=== PATIENT | female | born 1940 | race Caucasian/White ===

== ENCOUNTER 2021-11-09 11:50 | Outpatient (CLI) | payer OTHER, SELFPAY ==
--- NOTE | ~2021-11-09 | XR_ITS ---
EXAM: XR foot LT 2V DATE: 11/09/2021 12:16 HISTORY: R52 - Pain, SWELLING X 6WKS. NKI . COMPARISON: None available. FINDINGS: Decreased mineralization. No fracture or dislocation. No lytic or blastic lesion. Severe h allux valgus of the first ray, with moderate valgus at the second ray. Moderate degenerative change a t the first MTP and second MCP joints. Scattered mild degenerative change in the midfoot joints. Plan tar enthesopathy No erosion or periosteal change. Soft tissues within normal limits. IMPRESSION: Severe hallux valgus. Scattered degenerative changes, detailed above. Plantar enthesopath y. Reviewed, dictated and finalized at location K. IMPRESSION: Severe hallux valgus. Scattered degenerative changes, detailed christina pascual Plantar enthesopathy.
--- NOTE | ~2021-11-09 | US_ITS ---
US venous doppler [facility] DATE: 11/09/2021 12:40 INDICATION: Left leg pain TECHNIQUE: Real-time and color flow imaging and Doppler analysis COMPARISON: None FINDINGS: There is spontaneous and phasic flow and normal augmentation and color flow signal and norm al compression of the deep veins of the left lower extremity. IMPRESSION: No evidence of deep venous thrombosis of left leg Reviewed, dictated and finalized at Location A. Reviewed, dictated and finalized at location B.
--- NOTE | ~2021-11-09 | XR_ITS ---
EXAMINATION: XR ankle LT 2V DATE: 11/09/2021 12:16 INDICATION: 6 weeks of left foot and ankle pain and swelling TECHNIQUE: 1. Anteroposterior and lateral view of the left ankle were obtained. 2. Dorsoplantar and lateral views of the left foot were obtained. COMPARISON: None. FINDINGS: 50 degrees hallux valgus with bunion at the medial head of the first metatarsal. Alignment of the lef t foot and ankle is otherwise normal. No fracture. Polyarticular osteoarthritis, moderate severity at the second metatarsophalangeal joint and mild to moderate severity at the first metatarsophalangeal and a few tarsal metatarsal and interphalangeal joints. Small plantar calcaneal spur. No ankle joint effusion. The soft tissues are unremarkable. IMPRESSION: 1. Hallux valgus and bunion with mild hypertrophic changes at the medial head of the first metatarsal . 2. 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 Reviewed, dictated and finalized at location A. IMPRESSION: 1. Hallux valgus and bunion with mild hypertrophic changes at the medial head o f the first metatarsal. 2. 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
== END 2021-11-09 11:51 | disposition home or self-care (01) ==
PROVIDERS: PCP Emergency Medicine; Visit Provider Emergency Medicine
DX: R52 Pain, unspecified (principal); R60.9 Edema, unspecified; M20.12 Hallux valgus (acquired), left foot; M19.072 Primary osteoarthritis, left ankle and foot; M77.32 Calcaneal spur, left foot
CPT/HCPCS: 73600; 73620; 93971

== ENCOUNTER 2023-07-24 11:30 | Outpatient (CLI) | payer OTHER, SELFPAY ==
--- NOTE | ~2023-07-24 | XR_ITS ---
Clinical Indication: Cough PA and lateral views of the chest: Comparison: 09/25/2005 Findings: Stable calcified right apical granuloma. The lungs are otherwise clear, without evidence of focal consolidation or pleural effusion. Cardiomediastinal silhouette is within normal limits. Bone s and soft tissues are unremarkable. Impression: No significant abnormality seen. Reviewed, dictated and finalized at location . Impression: No significant abnormality seen.
== END 2023-07-24 11:31 | disposition home or self-care (01) ==
LOC: ANHIMG 11:35
PROVIDERS: PCP Emergency Medicine; Visit Provider Emergency Medicine
DX: R05.9 Cough, unspecified (principal); H93.8X3 Other specified disorders of ear, bilateral
CPT/HCPCS: 71046

== ENCOUNTER 2024-05-13 13:23 | Outpatient (CLI) | payer OTHER, SELFPAY | END 2024-05-13 13:24 | disposition home or self-care (01) | PROVIDERS: PCP Emergency Medicine; Visit Provider Internal Medicine Nephrology | DX: N18.32 Chronic kidney disease, stage 3b (principal); N28.1 Cyst of kidney, acquired | CPT/HCPCS: 76775 ==

== ENCOUNTER 2024-07-02 12:01 | Outpatient (CLI) | payer OTHER, SELFPAY ==
--- OUTSIDE RECORDS SUMMARY | 2024-07-02 13:48 | XMS_ITS | Clinical Summary ---
Author Organization [facility] Address [address] [place] [id number] Care Team Providers Care Sped Teacher Name Role Phone Unavailable Primary Care Provider Unavailabl e Social History Tobacco Use Types Packs/Day Years Used Date Smoking Tobacco: Never Assessed Comments Unknown Sex and Gender Information Value Date Recorded Sex Assigned at Not on file Legal Sex Female 7:55 PM CDT Gender Identity Not on file Sexual Orientation Not on file Last Filed Vital Signs Vital Sign Reading Time Taken Comments Blood Pressure 134/84 10/31/2016 9:40 AM CDT Pulse 95 10/31/2016 9:40 AM CDT Temperature - - Respiratory Rate - - Oxygen Saturation - - Inhaled Oxygen Concentration - - Weight 88.5 kg (195 lb) 10/31/2016 9:40 AM CDT Height 167.6 cm (5' 6 ) 10/31/2016 9:40 AM CDT Body Mass Index 31.47 10/31/2016 9:40 AM CDT Plan of Treatment Health Maintenance Due Date Last Done Comments DTaP, Tdap and Td Vaccines ( 1 - Tdap) 1959 Pneumococcal Vaccine: 50+ Ye ars (1 of 1 - PCV) 1989 Zoster Vaccines (1 of 2) 1989 RSV Immunization or 60+ Years (1 - 1-dose 75+ series) 2014 COVID-19 Vaccine ( - 2023-2 5 season) 2023 Meningococcal B Vaccine Aged Out No l onger eligible based on patient's age to complete this topic Meningococcal Vaccine Aged Out No liliana christopher eligible based on patient's age to complete this topic RSV Immunizations Under 20 Months Aged Out No longer eligible based on patient's age to complete this topic
== END 2024-07-02 12:02 | disposition home or self-care (01) ==
LOC: ANHLAB 12:06
PROVIDERS: PCP Emergency Medicine; Visit Provider Emergency Medicine
DX: E11.9 Type 2 diabetes mellitus without complications (principal)
CPT/HCPCS: 36415; 83036

== ENCOUNTER 2024-09-15 14:18 | Emergency (ER) | payer OTHER, SELFPAY ==
--- NOTE | ~2024-09-15 | XR_ITS ---
EXAM: XR knee LT min 4V DATE: 09/15/2024 15:49 HISTORY: left knee pain, swelling . COMPARISON: None available. FINDINGS: Osteopenia. Moderate tricompartmental joint space narrowing and osteophytosis. No fracture or dislocation. No lytic or blastic lesion. Scattered vascular calcifications. Large volume joint fl uid. Rounded peripherally calcified/ossified body projecting over the suprapatellar recess. IMPRESSION: No acute osseous finding in the left knee. Moderate tricompartmental osteoarthritis. Larg e knee joint effusion with loose body. Reviewed, dictated and finalized at location K. IMPRESSION: No acute osseous finding in the left knee. Moderate tricompartmenta l osteoarthritis. Large knee joint effusion with loose body.
--- NOTE | ~2024-09-15 | US_ITS ---
EXAMINATION: US venous doppler [facility] DATE: 09/15/2024 18:10 INDICATION: pain in leg,no injury . TECHNIQUE: Grayscale images without and with compression and Doppler images of the left lower extremi ty veins were obtained. COMPARISON: None FINDINGS: The left common femoral vein, profunda (deep) femoral vein, femoral vein, popliteal vein, peroneal v ein, posterior tibial veins, gastrocnemius vein, and greater saphenous vein are patent. Large left kn ee joint effusion. IMPRESSION: Patent left lower extremity veins. No evidence of deep venous thrombosis. Reviewed, dictated and finalized at location K.
--- OUTSIDE RECORDS SUMMARY | 2024-09-15 14:22 | XMS_ITS | Clinical Summary ---
Author Organization [facility] Address [address] [place] [id number] Care Team Providers Care Doctor'S Assistant Name Role Phone Unavailable Primary Care Provider [...] 9:40 AM CDT Height 167.6 cm (5' 6) 10/31/2016 9:40 AM CDT Body Mass Index [...]
[2024-09-15 15:00] VITALS: BP 110/61; PULSE 94; RESP 16; TEMP 36.6; O2SAT 96
--- NOTE | 2024-09-15 15:03 | ED.EXTPRO ---
HPI - Extremity Problem General Chief complaint: Extremity Problem,Nontraumatic <Kiera Merchant PA-C - Last Filed: 09/16/24 10:43> Stated complaint: left leg pain <JYOTI Thomas Last Filed: 09/16/24 10:43> Time Seen by Provider: 09/15/24 15:03 <Kiera Merchant PA-C - Last Filed: 09/16/24 10:43> Focused HPI: This is a 84 year old female that presents to the ER for left knee pain. No known injury. Started this morning. Reports associated swelling. Denies fevers, redness. GENERAL: Well-appearing, well-nourished, and in no acute distress. HEAD: Normocephalic, atraumatic. CHEST: Clear to auscultation. ?No respiratory distress. HEART: Regular rate and rhythm.? NEURO: ?Alert and oriented x3. EXTREMITY: Left knee with swelling without overlying redness. Normal DP pulse Patient screened in triage and initial orders placed.? ?Additional care and disposition to be based upon?diagnostic testing and treatment. <Kiera Merchant PA-C - Last Filed: 09/16/24 10:43> Focused HPI: This is a 84 year old female that presents to the ER for left knee pain. No known injury. Started this morning. Reports associated swelling. Denies fevers, redness. GENERAL: Well-appearing, well-nourished, and in no acute distress. HEAD: Normocephalic, atraumatic. CHEST: Clear to auscultation. ?No respiratory distress. HEART: Regular rate and rhythm.? NEURO: ?Alert and oriented x3. EXTREMITY: Left knee with swelling without overlying redness. Normal DP pulse Patient screened in triage and initial orders placed.? ?Additional care and disposition to be based upon?diagnostic testing and treatment. <JYOTI Yu Last Filed: 09/15/24 23:40> Source: patient <JYOTI Yu Last Filed: 09/15/24 23:40> Mode of arrival: ambulatory <JYOTI Yu Last Filed: 09/15/24 23:40> Limitations: no limitations <Jessy Ni PA-C - Last Filed: 09/15/24 23:40> History of Present Illness HPI Narrative: Agree with above HPI. Began this morning after waking up. Reports pain with ambulation. Uses a walker. Denies numbness. Does have history of gout, on chronic allopurinol therapy, but states this does not feel similar to previous gout episodes. <Jessy Ni PA-C - Last Filed: 09/15/24 23:40> Related Data Home medications: Home Medications ?Medication ?Instructions ?Recorded ?Confirmed ?Last Taken ?Type vit C 250 mg-vit E 90 mg-zinc 40 1 tablet PO BID 12/08/19 07/02/24 Unknown History mg-copper 1 to-bmujsc-qupqwq capsule (PreserVision AREDS-2) magnesium 250 mg tablet 250 mg PO BID 03/30/20 07/02/24 Unknown History iciwavuzgnsdjvzmudasdg-jpftbnii-dsauqgpv 1 drp EACH EYE QID 06/13/22 07/02/24 Unknown History 80 0.5 %-1 %-0.5 % eye drops (Refresh Optive Advanced) latanoprost 0.005 % eye drops 1 drp EACH EYE QPM 06/13/22 07/02/24 Unknown History lifitegrast 5 % eye drops in a 1 drp EACH EYE BID 06/13/22 07/02/24 Unknown History dropperette (Xiidra) omega 8-giz-dlm-fish oil 1,200 mg 1 cap PO DAILY 02/27/24 07/02/24 Unknown History (144 mg-216 mg) capsule (Fish Oil) <Kiera Merchant PA-C - Last Filed: 09/16/24 10:43> Allergies/Adverse reactions: Allergies Allergy/AdvReac Type Severity Reaction Status Date / Time Sulfa (Sulfonamide Allergy Unknown unknown Verified 09/15/24 15:03 Antibiotics) thiopental Allergy Unknown GI UPSET Verified 09/15/24 15:03 <Kiera Merchant PA-C - Last Filed: 09/16/24 10:43> Review of Systems Review of Systems: All systems reviewed & are unremarkable except as noted in HPI. <Jessy Ni PA-C - Last Filed: 09/15/24 23:40> All systems reviewed & are unremarkable except as noted in HPI and below <Jessy Ni PA-C - Last Filed: 09/15/24 23:40> [facility] Past Medical History Medical History: Medical History Varicose veins of both lower extremities Vitamin D deficiency Stage 3 chronic kidney disease Skin lesion of back Reactive depression Patient had no falls in past year Pain and swelling of left elbow Olecranon bursitis of left elbow Mixed stress and urge urinary incontinence Macular degeneration (senile) of retina, unspecified Idiopathic chronic gout of multiple sites without tophus Hyperglycemia Effusion, left elbow Anxiety Actinic keratoses Acute sinusitis Impacted cerumen of left ear Urge incontinence Gout Gout attack Left leg swelling Swelling Pain Hypothyroidism (acquired) HLD (hyperlipidemia) <Kiera Merchant PA-C - Last Filed: 09/16/24 10:43> Family History Family History: Family History Sibling Family history of cardiovascular disease Family history of chronic obstructive pulmonary disease Father Acute myocardial infarction, Onset Age: 62 Mother Acute myocardial infarction, Onset Age: 69 <Kiera Merchant PA-C - Last Filed: 09/16/24 10:43> Social History Social History: Social History Smoking status: Never smoker Alcohol intake: never Substance use: never Do You Feel Safe in your Home?: Yes Lack of Transportation: No Lack of Food: Never True Current Housing: I Have Housing Concerned About Future Housing: No Difficulty Paying Gas/Electric Bills: No Difficulty Paying for Meds: No Currently Unemployed: No Education: High School Diploma/GED Difficulty w/ Childcare or Family Care: No <Kiera Merchant PA-C - Last Filed: 09/16/24 10:43> Exam Narrative: GENERAL: Elderly, obese with BMI of 30.7, non-toxic, in no acute distress. HEAD: Normocephalic, atraumatic. RESPIRATORY: Airway patent, respirations nonlabored. CARDIOVASCULAR: Regular rate and rhythm. Pedal pulses are intact and easily palpable. MUSCULOSKELETAL: Moves all extremities. No gross deformities. Mild swelling throughout left anterior knee with tenderness to palpation diffusely throughout left knee joint spaces. Mild tenderness throughout left posterior calf region. No extremity swelling. Sensation intact throughout extremity. SKIN: Warm, dry, normal color. NEURO: A&O X3. Speech clear. Cranial nerves II-XII grossly intact. No ataxic movements. PSYCHIATRIC: Appropriate mood and affect. Normal interaction. <JYOTI Yu Last Filed: 09/15/24 23:40> Course Vital Signs Vital signs: Vital Signs Temperature 97.9 F 09/15/24 15:00 Pulse Rate 94 09/15/24 15:00 Respiratory Rate 16 09/15/24 15:00 Blood Pressure 110/61 09/15/24 15:00 Pulse Oximetry 96 09/15/24 15:00 Oxygen Delivery Room Air 09/15/24 15:00 Temperature 97.9 F 09/15/24 15:00 Pulse Rate 89 09/15/24 21:16 Respiratory Rate 17 09/15/24 21:16 Blood Pressure 115/69 09/15/24 21:16 Pulse Oximetry 98 09/15/24 21:16 Oxygen Delivery Room Air 09/15/24 15:00 <JYOTI Thomas Last Filed: 09/16/24 10:43> Vital Signs Temperature 97.9 F 09/15/24 15:00 Pulse Rate 94 09/15/24 15:00 Respiratory Rate 16 09/15/24 15:00 Blood Pressure 110/61 09/15/24 15:00 Pulse Oximetry 96 09/15/24 15:00 Oxygen Delivery Room Air 09/15/24 15:00 Temperature 97.9 F 09/15/24 15:00 Pulse Rate 89 09/15/24 21:16 Respiratory Rate 17 09/15/24 21:16 Blood Pressure 115/69 09/15/24 21:16 Pulse Oximetry 98 09/15/24 21:16 Oxygen Delivery Room Air 09/15/24 15:00 <JYOTI Yu Last Filed: 09/15/24 23:40> MDM - Extremity (Nontraumatic) MDM Narrative Medical decision making narrative: Patient?s injury is consistent with musculoskeletal etiology. No signs of neurologic or vascular compromise on physical examination. Compartments are soft without signs of compartment syndrome. XR of left knee without evidence of acute osseous abnormality. Does show arthritis changes with large joint effusion. Venous Doppler ultrasound was obtained of left lower extremity and negative for DVT. Discussed likelihood of knee sprain, internal derangement of knee. There is no warmth or erythema to the knee to suggest gout or other septic arthritis. She reports this does not feel similar to her previous gout episodes. She does have preserved range of motion. Patient given Holger bandage, Tylenol, tramadol in the ED. On re-evaluation, she is feeling improved. Was able to ambulate with walker. Patient is felt to be stable for discharge home and further outpatient management and treatment. Will refer to orthopedics for further evaluation. Will provide short course of tramadol for home. Given return precautions. Discharged in stable condition. <Jessy Ni PA-C - Last Filed: 09/15/24 23:40> Medical Records Attestation: I reviewed the patient's medical records. <Jessy Ni PA-C - Last Filed: 09/15/24 23:40> Imaging Data Attestation: I personally reviewed and interpreted this imaging study as follows: <JYOTI Yu Last Filed: 09/15/24 23:40> Radiologist's impression: ITS Impressions Knee X-Ray 09/15/24 15:57 IMPRESSION: No acute osseous finding in the left knee. Moderate tricompartmental osteoarthritis. Large knee joint effusion with loose body. Venous Doppler Study 09/15/24 18:18 IMPRESSION: Patent left lower extremity veins. No evidence of deep venous thrombosis. <Jessy Ni PA-C - Last Filed: 09/15/24 23:40> Critical Care Time Critical Care Time Critical Care Time: No <JYOTI Thomas Last Filed: 09/16/24 10:43> Discharge Plan Discharge Clinical Impression: Effusion of left knee joint Strain of left knee Qualifiers: Encounter type: initial encounter Qualified Code(s): S86.912A - Strain of unspecified muscle(s) and tendon(s) at lower leg level, left leg, initial encounter <JYOTI Thomas Last Filed: 09/16/24 10:43> Patient Disposition: Home <JYOTI Thomas Last Filed: 09/16/24 10:43> Condition: Stable <JYOTI Thomas Last Filed: 09/16/24 10:43> Instructions: Antibiotic Form, Knee Sprain (ED), P.R.I.C.E. Treatment (ED) <JYOTI Thomas Last Filed: 09/16/24 10:43> Additional Instructions: Keep leg elevated whenever possible. Recommend frequent icing to knee. Utilize Holger bandage for compression and support. Continue Tylenol as needed for pain. You can take 1000mg of tylenol every 6 hours. Utilize tramadol as needed for more severe pain. Follow-up with your primary care doctor and/or orthopedics for further evaluation if needed. Return to the ED for new or worsening concerns. <JYOTI Thomas Last Filed: 09/16/24 10:43> Patient Language: Turkmen <JYOTI Thomas Last Filed: 09/16/24 10:43> Prescriptions: New tramadol 50 mg tablet 50 mg PO Q6H PRN (Reason: pain) Qty: 15 0RF No Action PreserVision AREDS-2 [id number] uf-ddfg-ya-mg capsule 1 tablet PO BID Rx Instructions: administer with meals magnesium 250 mg tablet 250 mg PO BID Xiidra 5 % dropperette 1 drp EACH EYE BID Rx Instructions: administer approximately 12 hours apart latanoprost 0.005 % drops 1 drp EACH EYE QPM Refresh Optive Advanced 0.5-1-0.5 % drops 1 drp EACH EYE QID omega 2-hoe-zbp-fish oil [Fish Oil] 1,200 (144-216) mg capsule 1 cap PO DAILY oxybutynin chloride 5 mg tablet extended release 24hr See Rx Instructions .ROUTE .COMPLEX Qty: 90 2RF Dose Instruction: TAKE 1 TABLET BY MOUTH DAILY Rx Instructions: TAKE 1 TABLET BY MOUTH DAILY losartan-hydrochlorothiazide 100-25 mg tablet See Rx Instructions .ROUTE .COMPLEX Qty: 90 2RF Dose Instruction: TAKE 1 TABLET BY MOUTH EVERY DAY Rx Instructions: TAKE 1 TABLET BY MOUTH EVERY DAY fenofibrate nanocrystallized 48 mg tablet See Rx Instructions .ROUTE .COMPLEX Qty: 90 2RF Dose Instruction: TAKE 1 TABLET BY MOUTH EVERY DAY Rx Instructions: TAKE 1 TABLET BY MOUTH EVERY DAY allopurinol 100 mg tablet See Rx Instructions .ROUTE .COMPLEX Qty: 180 2RF Dose Instruction: TAKE 2 TABLETS BY MOUTH EVERY DAY Rx Instructions: TAKE 2 TABLETS BY MOUTH EVERY DAY pantoprazole 40 mg tablet,delayed release (DR/EC) See Rx Instructions .ROUTE .COMPLEX Qty: 90 2RF Dose Instruction: TAKE 1 TABLET BY MOUTH EVERY DAY Rx Instructions: TAKE 1 TABLET BY MOUTH EVERY DAY levothyroxine [Synthroid] 100 mcg tablet 100 mcg PO DAILY Qty: 90 2RF <Kiera Merchant PA-C - Last Filed: 09/16/24 10:43> Follow-up/Referrals: Brant Willis MD [Primary Care Provider] - Mohsen Chu MD [Physician] - (ORTHOPEDICS) <Kiera Merchant PA-C - Last Filed: 09/16/24 10:43> Time of Disposition: 21:08 <Kiera Merchant PA-C - Last Filed: 09/16/24 10:43> 21:08 <Jessy Ni PA-C - Last Filed: 09/15/24 23:40>
--- OUTSIDE RECORDS SUMMARY | 2024-09-15 18:12 | XMS_ITS | Clinical Summary ---
Author Organization [facility] Address [address] [place] [id number] Care Team Providers Care Application Development Specialist Name Role Phone Unavailable Primary Care Provider [...]
[2024-09-15] MEDS: traMADol HCL (*CRX) 50 MG TABLET PO (19:26)
[2024-09-15] MEDS: ACETAMINOPHEN 500 MG TABLET 1000 MG PO (19:26)
[2024-09-15 19:30] VITALS: BP 115/69; PULSE 89; RESP 17; O2SAT 98
[2024-09-15 21:16] VITALS: BP 115/69; PULSE 89; RESP 17; O2SAT 98
== END 2024-09-15 21:20 | disposition home or self-care (01) ==
PROVIDERS: Emergency Provider Physician Assistant; PCP Emergency Medicine
DX: S86.912A Strain of unspecified muscle(s) and tendon(s) at lower leg level, left leg, initial encounter (principal); M25.462 Effusion, left knee; M79.662 Pain in left lower leg; N18.30 Chronic kidney disease, stage 3 unspecified; N39.46 Mixed incontinence; E55.9 Vitamin D deficiency, unspecified; E03.9 Hypothyroidism, unspecified; E78.5 Hyperlipidemia, unspecified; H35.30 Unspecified macular degeneration; M1A.00X0 Idiopathic chronic gout, unspecified site, without tophus (tophi); Z79.899 Other long term (current) drug therapy; X58.XXXA Exposure to other specified factors, initial encounter
CPT/HCPCS: 73564; 93971; 99284; A9270

== ENCOUNTER 2024-12-26 10:58 | Emergency (ER) | payer OTHER, SELFPAY ==
[2024-12-26] VITALS (15 sets, daily range): BP systolic 101–140; BP diastolic 59–78; PULSE 88–99; RESP 16–31; TEMP 36.8; O2SAT 91–100
--- NOTE | ~2024-12-26 | CT_ITS ---
CTA CHEST CLINICAL HISTORY: cough, new dvt . COMPARISON: Chest x-ray today TECHNIQUE: Helical CTA performed from thoracic inlet to upper abdomen IV contrast information not listed in PACS Coronal, sagittal reformats. Multiplanar MIPS CT images acquired with automatic exposure control for dose reduction DLP: 538 mGy-cm FINDINGS: Pulmonary arteries: Large PE right upper lobe segments. Tiny segmental PE left upper lobe Thoracic Aorta: No dissection or aneurysm. Atherosclerotic disease. Heart/pericardium: Minimal coronary artery calcification. RV/LV ratio: Normal. Lungs/Pleura: Mild bibasilar scarring. Tiny focal pneumonitis right upper lobe. Calcified granuloma right upper lobe. Tracheobronchial tree: Patent. Nodes: No enlarged nodes. Right hilar calcification Bones: No acute bony abnormality. Soft tissues: Unremarkable. Visualized upper abdomen: Hepatomegaly. Large cyst liver segment 6. Renal cysts. IMPRESSION: 1. Positive for PE. Large thrombus right upper lobe. Tiny focus left upper lobe. 2. No CT evidence of right heart strain. Reviewed, dictated and finalized at location R. IMPRESSION: 1. Positive for PE. Large thrombus right upper lobe. Tiny focus left upper lob e. 2. No CT evidence of right heart strain.
--- NOTE | ~2024-12-26 | XR_ITS ---
Examination: XR chest 2V Clinical History: cough Comparison: 07/24/2023 Technique: PA and Lateral Findings: Cardiomediastinal silhouette normal size and configuration. Minimal bibasilar atelectasis and/or scarring persists. Right upper lobe calcified granuloma. Lungs otherwise clear. No acute bony abnormality. Osteopenia. IMPRESSION: 1. No acute cardiopulmonary findings. Reviewed, dictated and finalized at location R.
--- NOTE | ~2024-12-26 | US_ITS ---
EXAMINATION: US venous doppler LE , 12/26/2024 12:15 CDT HISTORY: edema Comparison: None Technique: Izaguirre-scale and color Doppler images were attempted of the lower saphenofemoral junction, common femoral vein,superficial femoral vein, proximal deep femoral vein, proximal deep femoral vein, popliteal vein and posterior tibial veins. Findings: Deep Venous System:There is thrombus with diminished flow in the common femoral vein extending into the peroneal and posterior tibial veins. There is thrombus noted also within the superficial greater saphenous vein. Soft tissues: Soft tissues are unremarkable. Impression: 1. Extensive DVT detailed above. Superficial thrombophlebitis. Reviewed, dictated and finalized at location P. Impression: 1. Extensive DVT detailed above. Superficial thrombophlebitis.
--- OUTSIDE RECORDS SUMMARY | 2024-12-26 12:50 | XMS_ITS | Clinical Summary ---
Author Organization [facility] Address [address] [place] [id number] Care Team Providers Care Certified Orthotist Practice Manager Name Role Phone Unavailable Primary Care Provider [...] 1 - Tdap) 1959 Pneumococcal Vaccine: 50+ Years (1 of 1 - PCV) 1989 Zoster Vaccines (1 of 2) 1989 RSV Immunization or 60+ Years (1 - 1-dose 75+ series) 2014 COVID-19 Vaccine ( - 2023-2 5 season) 2024 Influenza Adult (#1) 2024 12/27/2016, 12/22/2015 Meningococcal B Vaccine Aged Out No l onger eligible based on patient's age to complete this topic Meningococcal Vaccine Aged Out No liliana christopher eligible based on patient's age to complete this topic RSV Immunizations Under 20 Months Aged Out No longer eligible b ased on patient's age to complete this topic
[2024-12-26 13:08] LABS: Hematocrit 40.2 % (37.0-47.0); Hemoglobin 13.1 g/dL (12.0-15.0); Immature Granulocyte Percent A 0.4 % (0-0.5); Lymphocytes Absolute Auto 1.73 K/mm3 (0.9-3.2); Mean Corpuscular HGB Conc 32.6 g/dl (32-36); Mean Corpuscular Hemoglobin 30.8 pg (26-34); Mean Corpuscular Volume 94.6 fl (80-100); Nucleated Red Blood Cells Absolute Auto 0.000 K/mm3 (0.0-0.012); Nucleated Red Blood Cells Perc 0.0 % (0.0-0.2); Platelet Count Result 323 k/mm3 (150-375); Red Blood Count 4.25 M/mm3 (4.2-5.4); White Blood Count 9.6 K/mm3 (4.5-10.0)
[2024-12-26 13:22] LABS: Alanine Aminotransferase 62 U/L (6-35); Albumin Level 3.8 g/dL (3.5-5.1); Alkaline Phosphatase 74 U/L (38-126); Anion Gap 10 mmol/L (4-12); Aspartate Amino Transferase 50 U/L (14-36); Bilirubin,Total 0.8 mg/dL (0.2-1.3); Blood Urea Nitrogen 41 mg/dL (7-17); Calcium 9.4 mg/dL (8.4-10.2); Carbon Dioxide 28 mmol/L (22-30); Chloride 103 mmol/L (98-107); Estimated Glomerular Filt Rate 40; Glucose 135 mg/dL (65-110); Potassium 3.8 mmol/L (3.4-5.0); Sodium 141 mmol/L (137-145); Total Protein 7.7 g/dL (6.3-8.2)
[2024-12-26] MEDS: IPRATROPIUM 0.5 MG/ALBUTEROL SULFATE 2.5 MG (BASE) AMPUL.NEB 3 ML INHALATION (13:28)
[2024-12-26 13:37] LABS: INR 1.2; Prothrombin Time 15.3 Seconds (11.1-14.7)
[2024-12-26 13:38] LABS: Partial Thromboplastin Time 32.3 Seconds (22.3-36.8)
[2024-12-26] MEDS: HEPARIN SOD/D5W 100 UNITS/ML 25,000 UNITS/250 ML BAG 12 UNITS IV CONT (14:37)
--- NOTE | 2024-12-26 14:49 | ED.EXTPRO ---
HPI - Extremity Problem General Chief complaint: Extremity Problem,Nontraumatic Stated complaint: left leg swelling Time Seen by Provider: 12/26/24 12:05 History of Present Illness HPI Narrative: Patient is an 84-year-old female who presents ER with left leg swelling. Ongoing over last week and a half. She has had pain at the left inguinal region extending into the proximal thigh. She has also developed a mild cough over last week. No chest pain and no pain with deep breath. No hemoptysis. No productive cough. No fevers or chills or sweats. Had similar presentation in September where her leg swelled but she was negative for DVT. She is told she may have had a gout flare. She has no history of clots previously. No known trauma. No recent immobilization. Related Data Home Medications ?Medication ?Instructions ?Recorded ?Confirmed ?Last Taken ?Type vit C 250 mg-vit E 90 mg-zinc 40 1 tablet PO BID 12/08/19 12/26/24 12/25/24 History mg-copper 1 ej-fjfdth-wbmghc capsule (PreserVision AREDS-2) magnesium 250 mg tablet 250 mg PO DAILY 03/30/20 12/26/24 12/26/24 History ryfgnayvppkxepohpybwst-bmoqhezv-qvjegcjd 1 drp EACH EYE QID 06/13/22 12/26/24 12/25/24 History 80 0.5 %-1 %-0.5 % eye drops (Refresh Optive Advanced) latanoprost 0.005 % eye drops 1 drp EACH EYE QPM 06/13/22 12/26/24 12/25/24 History lifitegrast 5 % eye drops in a 1 drp EACH EYE BID 06/13/22 12/26/24 12/25/24 History dropperette (Xiidra) omega 6-uyu-gcc-fish oil 1,200 mg 1 cap PO DAILY 02/27/24 12/26/24 12/25/24 History (144 mg-216 mg) capsule (Fish Oil) Allergies Allergy/AdvReac Type Severity Reaction Status Date / Time Sulfa (Sulfonamide Allergy Unknown unknown Verified 12/26/24 12:02 Antibiotics) thiopental Allergy Unknown GI UPSET Verified 12/26/24 12:02 Review of Systems Review of Systems: All systems reviewed & are unremarkable except as noted in HPI and below Constitutional: Constitutional: Reports no additional constitutional complaints ENT: Reports system reviewed and no additional complaints, except as documented Cardiovascular: Cardiovascular: Reports no additional cardiovascular complaints Respiratory: Respiratory: Reports no additional respiratory complaints Musculoskeletal: Musculoskeletal: Reports no additional musculoskeletal complaints Integumentary/Breasts: Skin/Breast: Reports system reviewed and no additional complaints, except as docu PMFSH Past Medical History Medical History Varicose veins of both lower extremities Vitamin D deficiency Stage 3 chronic kidney disease Skin lesion of back Reactive depression Patient had no falls in past year Pain and swelling of left elbow Olecranon bursitis of left elbow Mixed stress and urge urinary incontinence Macular degeneration (senile) of retina, unspecified Idiopathic chronic gout of multiple sites without tophus Hyperglycemia Effusion, left elbow Anxiety Actinic keratoses Acute sinusitis Impacted cerumen of left ear Urge incontinence Gout Gout attack Left leg swelling Swelling Pain Hypothyroidism (acquired) HLD (hyperlipidemia) Family History Family History Sibling Family history of cardiovascular disease Family history of chronic obstructive pulmonary disease Father Acute myocardial infarction, Onset Age: 62 Mother Acute myocardial infarction, Onset Age: 69 Social History Social History Smoking status: Never smoker Alcohol intake: never Substance use: never Do You Feel Safe in your Home?: Yes Lack of Transportation: No Lack of Food: Never True Current Housing: Decline to Answer Concerned About Future Housing: Decline to Answer Difficulty Paying Gas/Electric Bills: Decline to Answer Difficulty Paying for Meds: Decline to Answer Currently Unemployed: Decline to Answer Education: Decline to Answer Difficulty w/ Childcare or Family Care: Decline to Answer Exam Narrative: GENERAL: Well-appearing, well-nourished, and in no acute distress. HEAD: Normocephalic, atraumatic. ENT: Mucous membranes moist. CHEST: Clear to auscultation. No respiratory distress. HEART: Regular rate and rhythm. Normal peripheral pulses. ABDOMEN: Soft, nontender, nondistended, normal active bowel sounds. EXTREMITIES: Normal range of motion. 4+ edema LLE. SKIN: Warm, dry, no rash. NEURO: Alert and oriented x3. PSYCH: Normal mood and affect. Course Course Emergency Course: Patient resting comfortably. Started on heparin. I discussed the case with Dr. Childress at [facility]. He is happy to consult on the patient. Dr. Lamar with the hospitalist service has accepted the patient. She is stable and wearing 2L O2. Vital Signs Vital signs: Vital Signs Temperature 98.3 F 12/26/24 12:02 Pulse Rate 91 12/26/24 12:02 Respiratory Rate 20 12/26/24 12:02 Blood Pressure 126/74 12/26/24 12:02 Pulse Oximetry 96 12/26/24 12:02 Oxygen Delivery Room Air 12/26/24 12:02 Temperature 98.2 F 12/26/24 20:07 Pulse Rate 88 12/26/24 20:07 Respiratory Rate 21 H 12/26/24 20:07 Blood Pressure 125/73 12/26/24 20:07 Pulse Oximetry 94 12/26/24 20:07 Oxygen Delivery Room Air 12/26/24 12:02 Oxygen Flow Rate 2 12/26/24 15:19 MDM - Extremity (Nontraumatic) Lab Data 12/26/24 13:02 12/26/24 13:02 Labs: Lab Results 12/26/24 Range/Units 13:02 WBC 9.6 (4.5-10.0) K/mm3 RBC 4.25 (4.2-5.4) M/mm3 Hgb 13.1 (12.0-15.0) g/dL Hct 40.2 (37.0-47.0) % MCV 94.6 (80-100) fl MCH 30.8 (26-34) pg MCHC 32.6 (32-36) g/dl RDW 13.7 (11.5-14.5) % Plt Count 323 (150-375) k/mm3 MPV 10.2 (7.4-10.4) fl Immature Gran % (Auto) 0.4 (0-0.5) % Neut % (Auto) 71.8 (45.5-73.1) % Lymph % (Auto) 18.0 L (18.3-44.2) % [place] % (Auto) 7.6 (2.6-8.5) % Eos % (Auto) 1.6 (0-4.4) % Baso % (Auto) 0.6 (0.2-1.2) % Lymph # (Auto) 1.73 (0.9-3.2) K/mm3 [place] # (Auto) 0.7 H (0.1-0.6) K/mm3 Eos # (Auto) 0.2 (0-0.3) K/mm3 Baso # (Auto) 0.1 (0.0-0.1) K/mm3 Abs Immat Gran (auto) 0.04 H (0.00-0.031) K/mm3 Absolute Neuts (auto) 6.9 H (1.3-6.7) K/mm3 Absolute Nucleated RBC 0.000 (0.0-0.012) K/mm3 Nucleated RBC % 0.0 (0.0-0.2) % PT 15.3 H (11.1-14.7) Seconds INR 1.2 APTT 32.3 (22.3-36.8) Seconds Sodium 141 (137-145) mmol/L Potassium 3.8 (3.4-5.0) mmol/L Chloride 103 (98-107) mmol/L Carbon Dioxide 28 (22-30) mmol/L Anion Gap 10 (4-12) mmol/L BUN 41 H (7-17) mg/dL Creatinine 1.26 H (0.7-1.0) mg/dL Estim Creat Clear Calc Not Reportable Estimated GFR 40 L (59 - ) Glucose 135 H (65-110) mg/dL Calcium 9.4 (8.4-10.2) mg/dL Total Bilirubin 0.8 (0.2-1.3) mg/dL AST 50 H (14-36) U/L ALT 62 H (6-35) U/L Alkaline Phosphatase 74 (38-126) U/L Troponin I < 0.012 (0.000-0.034) ng/mL NT-Pro-B Natriuret Pep 181 H (19.9-100) pg/mL Total Protein 7.7 (6.3-8.2) g/dL Albumin 3.8 (3.5-5.1) g/dL Imaging Data Radiologist's impression: ITS Impressions Chest X-Ray 12/26/24 13:54 IMPRESSION: 1. No acute cardiopulmonary findings. Venous Doppler Study 12/26/24 13:59 Impression: 1. Extensive DVT detailed above. Superficial thrombophlebitis. Chest CTA 12/26/24 14:50 IMPRESSION: 1. Positive for PE. Large thrombus right upper lobe. Tiny focus left upper lobe. 2. No CT evidence of right heart strain. Critical Care Time Critical Care Time Critical Care Time: Yes Total Critical Care Time: 35 Discharge Plan Discharge Clinical Impression: Deep vein thrombosis, lower left extremity, Pulmonary embolism Patient Disposition: Acute Care Hospital Condition: Serious Patient Language: Nicaraguan Prescriptions: No Action PreserVision AREDS-2 [id number] ey-xhgz-np-mg capsule 1 tablet PO BID Rx Instructions: administer with meals magnesium 250 mg tablet 250 mg PO DAILY Xiidra 5 % dropperette 1 drp EACH EYE BID Rx Instructions: administer approximately 12 hours apart latanoprost 0.005 % drops 1 drp EACH EYE QPM Refresh Optive Advanced 0.5-1-0.5 % drops 1 drp EACH EYE QID omega 4-drc-dut-fish oil [Fish Oil] 1,200 (144-216) mg capsule 1 cap PO DAILY fenofibrate nanocrystallized 48 mg tablet See Rx Instructions .ROUTE .COMPLEX Qty: 90 2RF Dose Instruction: TAKE 1 TABLET BY MOUTH EVERY DAY Rx Instructions: TAKE 1 TABLET BY MOUTH EVERY DAY allopurinol 100 mg tablet See Rx Instructions .ROUTE .COMPLEX Qty: 180 2RF Dose Instruction: TAKE 2 TABLETS BY MOUTH EVERY DAY Rx Instructions: TAKE 2 TABLETS BY MOUTH EVERY DAY pantoprazole 40 mg tablet,delayed release (DR/EC) See Rx Instructions .ROUTE .COMPLEX Qty: 90 2RF Dose Instruction: TAKE 1 TABLET BY MOUTH EVERY DAY Rx Instructions: TAKE 1 TABLET BY MOUTH EVERY DAY levothyroxine [Synthroid] 100 mcg tablet 100 mcg PO DAILY Qty: 90 2RF oxybutynin chloride 5 mg tablet extended release 24hr See Rx Instructions .ROUTE .COMPLEX Qty: 90 2RF Dose Instruction: TAKE 1 TABLET BY MOUTH DAILY Rx Instructions: TAKE 1 TABLET BY MOUTH DAILY losartan-hydrochlorothiazide 100-25 mg tablet See Rx Instructions .ROUTE .COMPLEX Qty: 90 2RF Dose Instruction: TAKE 1 TABLET BY MOUTH EVERY DAY Rx Instructions: TAKE 1 TABLET BY MOUTH EVERY DAY Follow-up/Referrals: Brant Willis MD [Primary Care Provider, Internal Medicine]
[2024-12-26 14:57] LABS: NT Pro B Type Natriuretic Pept 181 pg/mL (19.9-100); Troponin I < 0.012 ng/mL (0.000-0.034)
--- NOTE | 2024-12-26 15:18 | PC.NURSE ---
Gave PRN order of 5,500 heparin.
--- NOTE | 2024-12-26 15:23 | ECG_ITS ---
Test Date: 2024-12-26 15:30:55 Measurements Intervals [place] Rate: 94 P: 63 OR: 185 QRS: -45 QRSD: 95 T: 20 QT: 362 QTc: 453 Interpretive Statements SINUS RHYTHM LEFT ANTERIOR FASCICULAR BLOCK POSSIBLE ANTERIOR MYOCARDIAL INFARCTION , PROBABLY OLD BASELINE ARTIFACT- I, III, AVR, AVL, AVF ABNORMAL ECG No previous ECG available for comparison Electronically Signed On 12-26-2024 16:16:51 CDT by Jah Goff D.O.
--- NOTE | 2024-12-26 15:24 | PC.NURSE ---
Called ct, will push all images to [facility].
--- NOTE | 2024-12-26 16:57 | PC.NURSE ---
called [facility] transfer center for update. states they still waiting for Dr. Childress with vascular to call back.
--- NOTE | 2024-12-26 20:27 | PC.NURSE ---
Report to transport team
[2024-12-26 21:06] LABS: Partial Thromboplastin Time 96.5 Seconds (22.3-36.8)
--- NOTE | 2024-12-26 22:35 | PC.NURSE ---
2044 PTT result called to Karen DONATO at [facility] at 2070
== END 2024-12-26 20:48 | disposition short-term general hospital (02) ==
PROVIDERS: Emergency Provider Emergency Medicine; PCP Emergency Medicine
DX: I82.412 Acute embolism and thrombosis of left femoral vein (principal); I82.432 Acute embolism and thrombosis of left popliteal vein; I82.442 Acute embolism and thrombosis of left tibial vein; I26.99 Other pulmonary embolism without acute cor pulmonale
CPT/HCPCS: 36415; 71046; 71275; 80053; 83880; 84484; 85025; 85610; 85730; 93005; 93971; 94640; 96365; 96366; 99291; J1644; Q9967

== ENCOUNTER 2025-02-25 15:22 | Outpatient (CLI) | payer OTHER, SELFPAY ==
--- NOTE | ~2025-02-25 | XR_ITS ---
EXAMINATION: XR wrist LT 2V, 02/25/2025 15:30 [employer] HISTORY: M25.539 - Pain in unspecified wrist COMPARISON: No comparisons available. Findings: Healing fracture of the distal radius with intra-articular extension. Minimal degenerative changes with chondrocalcinosis. Soft tissue swelling noted. Impression: Healing distal radial fracture Reviewed, dictated and finalized at location P. E[employer]ING [employer]ING [employer]ICIAN Impression: Healing distal radial fracture
--- NOTE | ~2025-02-25 | XR_ITS ---
EXAMINATION: XR hand LT 2V, 02/25/2025 15:30 OFFICE SPEC HISTORY: M25.539 - Pain in unspecified wrist COMPARISON: No comparisons available. Findings: No acute fracture or malalignment. 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 Impression: No acute fracture or malalignment. Reviewed, dictated and finalized at location P. CE SPEC Impression: No acute fracture or malalignment.
--- OUTSIDE RECORDS SUMMARY | 2025-02-25 17:53 | XMS_ITS | Clinical Summary ---
Author Organization [facility] Address [address] [place] [id number] Care Team Providers Care Address Change Clerk Name Role Phone Unavailable Primary Care Provider [...] - 1-dose 75+ series) 2014 COVID-19 Vaccine (2024-2 6 season) 2024 Influenza Adult (#1) 2024 12/27/2016, 12/22/2015 Hepatitis A Vaccines Aged Out No long er eligible based on patient's age to complete this topic Meningococcal B Vaccine Aged Out No l onger eligible based on patient's age to complete this topic Meningococcal Vaccine Aged Out No liliana christopher eligible based on patient's age to complete this topic RSV Immunizations Under 20 Months Aged Out No longer eligible b ased on patient's age to complete this topic
--- OUTSIDE RECORDS SUMMARY | 2025-02-25 17:53 | XMS_ITS | Clinical Summary ---
Author Organization [facility] Address [address] [place] [address] Care Team Providers Care Citizenship Instructor Name Role Phone Brant Willis MD Primary Care Provide r Allergies Active Allergy Reactions Criticality Noted Date Comments Sulfa (Sulfonamide Antibiotics) Unknown 12/10 UNCODED Thiopental Stomach upset Low 12/26/2024 UNCODED Medications allopurinoL (ZYLOPRIM) 100 mg tablet 1 tablet (100 mg total) by other route daily 07/16/19 25 Active fenofibrate nanocrystallized (TRICOR) 48 mg tablet Take 1 tablet (48 mg total) by mouth daily 06/13/19 25 Active levothyroxine (SYNTHROID) 100 mcg tablet Take 1 tablet (100 mcg total) by mouth jacquard loom heddles tier before breakfast 08/13/19 25 Active oxyBUTYnin XL (DITROPAN-XL) 5 mg 24 hr tablet Take 1 tablet (5 mg total) by mouth daily 10/11/[address] (PROTONIX) 40 mg EC tablet Take 1 tablet (40 mg total) by mouth daily 08/02/19 25 Active latanoprost (XALATAN) 0.005 % ophthalmic solution Administer 1 drop into both eyes nightly 06/14/19 23 Active apixaban (ELIQUIS) 5 mg tabletIndications:de ep venous thrombosis Take 2 tablets (10 mg total) by mouth 2 (two) times a day for 6 days, THEN 1 tablet (5 mg total) 2 (two) times a day. Disregard previous prescription. 72 tablet 1 12/31/19 25 Active losartan-hydrochloro thiazide (HYZAAR) 100-25 mg per tablet Take 1 tablet by mouth daily Active magnesium gluconate (MAGONATE) 500 mg (27 mg elemental) tabletIndications:hy pomagnesemia Active omega-3 fatty acids-fish oil 300-1,000 mg capsule Take 2,400 mg by mouth daily Active vit A/vit C/vit E/zinc/copper (PRESERVISION AREDS ORAL) Take by mouth Active traMADoL (ULTRAM) 50 mg tablet Take 1 tablet (50 mg total) by mouth every 6 (six) hours as needed for pain Active nystatin cream APPLY TOPICALLY 3 TIMES A DAY 01/07/20 Active Active Problems Problem Noted Date Diagnosed Date Thrombosis 12/26/2024 Acute deep vein thrombosis ( DVT) of femoral vein of left lower extremity 12/26/2024 Assessment & Plan (01/15/2025 2:05 PM UTILITY SALES AND SERVICE MANAGER): Status post mechanical thrombectomy of left external iliac vein and left common femoral femoral and popliteal veins 12/28/2024. She continues on Eliquis continues to have edema to the left lower extremity and has not been wearing compression. She was re-educated and strongly encouraged consistent use of compression to the left lower extremity to help manage edema and associated symptoms. Otherwise should remain on Eliquis for at least 6 months and follow-up with Heme-Onc for further evaluation of her unprovoked DVT. Bilateral pulmonary embolism 12/26/2024 Assessment & Plan (01/15/2025 2:06 PM UTILITY SALES AND SERVICE MANAGER): Remains on Eliquis. No chest pain or shortness of breath currently. Continue Eliquis for at least 6 months. Encounters Date Type Department Care Team Description 01/15/2025 10:30 AM UTILITY SALES AND SERVICE MANAGER Office Visit [facility] [address] [phone] Sujey Copeland, [place] Acute deep vein thrombosis (DVT) of femoral vein of left lower extremity (HCC) (Primary Dx); Bilateral pulmonary embolism (HCC) 01/12/2025 3:55 PM UTILITY SALES AND SERVICE MANAGER - 01/12/2025 5:31 PM UTILITY SALES AND SERVICE MANAGER Emergency [facility] [address] [place] [address] Rash (Primary Dx) Discharge Disposition: Discharge to home or self care 12/28/2024 10:05 AM CDT - 12/28/2024 11:45 AM CDT Surgery [facility] Cardiac Leg Man [address] [place] [id number] Jackson Childress MD EXTREMITY VENOGRAPHY, UNILATERAL S&I [id number] [[id number] (CPT )] 12/26/2024 9:33 PM CDT - 12/30/2024 2:10 PM CDT Hospital Encounter [address] [address] Ashu Lamar MD [place], MD Stan Brand Pathanjali, MD Acute deep vein thrombosis (DVT) of femoral vein of left lower extremity (HCC) (Primary Dx); Bilateral pulmonary embolism (HCC); Thrombosis Discharge Disposition: Discharge to home or self care 12/26/2024 2:15 PM CDT - 12/26/2024 11:59 PM CDT Hospital Encounter [facility] [employer] [address] [place] [address] Discharge Disposition: Discharge to home or self care 12/26/2024 1:40 PM CDT - 12/26/2024 11:59 PM CDT Hospital Encounter [facility] [employer] [address] [place] [address] Discharge Disposition: Discharge to home or self care 12/26/2024 12:55 PM CDT - 12/26/2024 11:59 PM CDT Hospital Encounter [facility] [employer] [facility] [place] [address] Discharge Disposition: Discharge to home or self care from Last 3 Months Immunizations Immunization Administration Dates Next Due Influenza, Unspecified 11/10/2024 Surgical History Surgery Date Site/Laterality Comments CARDIAC CATHETERIZATION 12/28/2024 Left Procedure: EXTREMITY VENOGRAPHY, UNILATERAL S&I [id number]; Surgeon: Jackson Childress MD; Location: [facility]; Service: Vascular; Laterality: Left; Medical devices from this surgery are in the Medical Devices section. CARDIAC CATHETERIZATION 12/28/2024 N/A Procedure: THROMBECTOMY, MECHANICAL, PRIMARY VENOUS, INITIAL VESSEL; Surgeon: Jackson Childress MD; Location: [facility]; Service: Vascular; Laterality: N/A; Medical devices from this surgery are in the Medical Devices section. Social History Tobacco Use Types Packs/Day Years Used Date Smoking Tobacco: Never Passive Smoke Exposure: Never Smokeless Tobacco: Never Tobacco Cessation:Counseling Given: Not Answered Social Connection and Isolation Panel Answer Date Recorded In a typical week, how many times do you talk on the phone with family, friends, or neighbors? More than three times a week 12/29/2024 How often do you get togethe r with friends or relatives? More than three times a week 12/29/2024 How often do you attend chur ch or pentecostalism services? 1 to 4 times per year 12/29/2024 Do you belong to any clubs o r organizations such as mu-ism groups, unions, fraternal or athletic groups, or school groups? No 12/29/2024 How often do you attend meet ings of the clubs or organizations you belong to? Never 12/29/2024 Are you , , di vorced, , never , or living with a partner? Patient unable to answer 12/29/2024 Overall Financial Resource Strain (CARDIA) Answe r Date Recorded How hard is it for you to pa y for the very basics like food, housing, medical care, and heating? Not very hard 12/29/2024 Hunger Vital Sign Answer Date Recorded Within the past 12 months, y ou worried that your food would run out before you got the money to buy more. Never true 12/30/19 Within the past 12 months, t he food you bought just didn't last and you didn't have money to get more. Never true 12/29/2024 PRAPARE - Transportation Answer Date Re corded In the past 12 months, has l ack of transportation kept you from medical appointments or from getting medications? No 12/11 In the past 12 months, has l ack of transportation kept you from meetings, work, or from getting things needed for daily living? No 12/29/2024 Housing Stability Vital Sign Answer Cheikh e Recorded Unable to Pay for Housing in the Last Year No 12/29/2024 In the past 12 months, how m any times have you moved where you were living? 0 12/29/2024 At any time in the [facility], were you homeless or living in a long-term (including now)? No 12/29/2024 [facility] Utilities Answer Date Recorded In the past 12 months has th [place], gas, oil, or water [employer] threatened to shut off services in your home? No 12/29/2024 Personal Safety Answer Date Recorded Have you ever been in or are you currently in a harmful physical or emotional relationship or is someone making you feel afraid or unsafe? Denies 01/12/2025 Comments Unknown Sex and Gender Information Value Date Recorded Sex Assigned at Not on file Legal Sex Female 8:05 PM UTILITY SALES AND SERVICE MANAGER Gender Identity Not on file Sexual Orientation Not on file Last Filed Vital Signs Vital Sign Reading Time Taken Comments Blood Pressure 154/90 01/12/2025 4:02 PM UTILITY SALES AND SERVICE MANAGER Pulse 79 01/12/2025 4:02 PM UTILITY SALES AND SERVICE MANAGER Temperature 36.4 C (97.5 F) 01/12/2025 4:02 PM UTILITY SALES AND SERVICE MANAGER Respiratory Rate 18 01/12/2025 4:02 PM UTILITY SALES AND SERVICE MANAGER Oxygen Saturation 98% 01/12/2025 4:02 PM UTILITY SALES AND SERVICE MANAGER Inhaled Oxygen Concentration - - Weight 87.5 kg (193 lb) 01/15/2025 10:19 AM UTILITY SALES AND SERVICE MANAGER Height 165.1 cm (5' 5) 01/15/2025 10:19 AM UTILITY SALES AND SERVICE MANAGER Body Mass Index 32.12 01/15/2025 10:19 AM UTILITY SALES AND SERVICE MANAGER Plan of Treatment Health Maintenance Due Date Last Done Comments Depression Screening 1940 Osteoporosis Screening-Bone Density Scan 1940 DTaP/Tdap/Td Vaccine (1 - Tdap) 1950 Hepatitis B Screening 1957 Pneumococcal vaccine 65+ (1 of 1 - PCV) 1989 Well Visit 65+ 01/20/2004 Covid-19 Vaccine (2 - 2024-2 6 season) 2024 05/14/2020 Fall Risk Assessment 12/30/2025 12/30/2024 Zoster Vaccine Completed 03/01/2020, 12/31/2019 Influenza Vaccine Completed 11/20/2024, , 12/07/2023, Additional history exists Medical Devices Implanted Type Area Tobacco Sweeper Device Identifier Shelf Expiration Date Model / Serial / Lot [employer] System Closure Repair Femoral Artery Suture Mediated Perclose Prostyle 16184-72 - [id number] Implanted:Qty: 1 on 12/28/2024 by Jackson Childress MD at [facility] [employer] 10/09/2026 [id number] / [id number] [employer] System Closure Repair Femoral Artery Suture Mediated Perclose Prostyle 15063-54 - [id number] Implanted:Qty: 1 on 12/28/2024 by Jackson Childress MD at [facility] [employer] 10/09/2026 10408-41 / / [id number] Procedures Procedure Name Priority Date/Time Associated Diagnosis Comments EGFR STAT 01/12/2025 4:26 PM UTILITY SALES AND SERVICE MANAGER DIFFERENTIAL AUTO STAT 01/12/2025 4:2 6 PM UTILITY SALES AND SERVICE MANAGER SEPSIS LACTATE WITH REFLEX STAT 01/12/2025 4:26 PM UTILITY SALES AND SERVICE MANAGER ERYTHROCYTE SEDIMENTATION RATE STAT 01/12/2025 4:26 PM UTILITY SALES AND SERVICE MANAGER CRP (ACUTE PHASE) STAT 01/12/2025 4:2 6 PM UTILITY SALES AND SERVICE MANAGER COMPREHENSIVE METABOLIC PANEL STAT 01/12/2025 4:26 PM UTILITY SALES AND SERVICE MANAGER CBC WITH AUTO DIFFERENTIAL STAT 01/12/2025 4:26 PM UTILITY SALES AND SERVICE MANAGER EGFR Routine 12/30/2024 2:48 AM CDT DIFFERENTIAL AUTO Routine 12/30/2024 2:4 8 AM CDT COMPREHENSIVE METABOLIC PANEL Routine 12/30/2024 2:48 AM CDT CBC WITH AUTO DIFFERENTIAL Routine 12/30/2024 2:48 AM CDT LIPID PANEL Routine 12/30/2024 2:48 AM CDT EGFR Routine 12/29/2024 2:22 AM CDT DIFFERENTIAL AUTO Routine 12/29/2024 2:2 2 AM CDT HEPARIN ANTI FACTOR XA ACTIVITY Routine 12/29/2024 2:22 AM CDT COMPREHENSIVE METABOLIC PANEL Routine 12/29/2024 2:22 AM CDT CBC WITH AUTO DIFFERENTIAL Routine 12/29/2024 2:22 AM CDT LIPID PANEL Routine 12/29/2024 2:22 AM CDT HEMOGLOBIN AND HEMATOCRIT Timed 12/28/2024 9:23 PM CDT HEPARIN ANTI FACTOR XA ACTIVITY Timed 12/28/2024 7:43 PM CDT ECG 12-LEAD Routine 12/28/2024 6:30 PM CDT HEMOGLOBIN AND HEMATOCRIT STAT 12/28/2024 3:52 PM CDT THROMBECTOMY, MECHANICAL, PRIMARY VENOUS, INITIAL VESSEL Routine 12/28/2024 11:20 AM CDT Acute deep vein thrombosis (DVT) of femoral vein of left lower extremity (HCC) VENO EXTREM UNILAT S&I Routine 11:20 AM CDT Acute deep vein thrombosis (DVT) of femoral vein of left lower extremity (HCC) URIC ACID Routine 12/28/2024 3:21 AM CDT EGFR Routine 12/28/2024 3:21 AM CDT DIFFERENTIAL AUTO Routine 12/28/2024 3:2 1 AM CDT HEPARIN ANTI FACTOR XA ACTIVITY Routine 12/28/2024 3:21 AM CDT COMPREHENSIVE METABOLIC PANEL Routine 12/28/2024 3:21 AM CDT CBC WITH AUTO DIFFERENTIAL Routine 12/28/2024 3:21 AM CDT LIPID PANEL Routine 12/28/2024 3:21 AM CDT HEPARIN ANTI FACTOR XA ACTIVITY Timed 12/27/2024 6:45 PM CDT HEPARIN ANTI FACTOR XA ACTIVITY Timed 12/27/2024 12:35 PM CDT TRANSTHORACIC ECHO (TTE) COMPLETE W DOPPLER/CF W CONTRAST W BUBBLE Routine 12/27/2024 12:11 PM CDT EGFR Routine 12/27/2024 5:47 AM CDT T4, FREE Routine 12/27/2024 5:47 AM CDT DIFFERENTIAL AUTO Routine 12/27/2024 5:4 7 AM CDT HEPARIN ANTI FACTOR XA ACTIVITY Timed 12/27/2024 5:47 AM CDT HEMOGLOBIN A1C Routine 12/27/2024 5:47 AM CDT LIPID PANEL Routine 12/27/2024 5:47 AM CDT THYROID FUNCTION CASCADE Routine 12/27/2024 5:47 AM CDT PHOSPHORUS Routine 12/27/2024 5:47 AM CDT MAGNESIUM Routine 12/27/2024 5:47 AM CDT COMPREHENSIVE METABOLIC PANEL Routine 12/27/2024 5:47 AM CDT CBC WITH AUTO DIFFERENTIAL Routine 12/27/2024 5:47 AM CDT PROTIME-INR STAT 12/26/2024 11:41 PM CDT EGFR Routine 12/26/2024 11:41 PM CDT DIFFERENTIAL AUTO Routine 12/26/2024 11: 41 PM CDT COMPREHENSIVE METABOLIC PANEL Routine 12/26/2024 11:41 PM CDT CBC WITH AUTO DIFFERENTIAL Routine 12/26/2024 11:41 PM CDT HEPARIN ANTI FACTOR XA ACTIVITY STAT 12/26/2024 11:[address] BODY OUTSIDE REFERENCE Routine 12/26/2024 2:15 PM CDT XR TRANSFER OF OUTSIDE FILMS Routine 12/26/2024 1:40 PM CDT US TRANSFER OF OUTSIDE FILMS Routine 12/26/2024 12:55 PM CDT from Last 3 Months Results * Sepsis Lactate w/ Reflex (01/12/2025 4:26 PM UTILITY SALES AND SERVICE MANAGER) Sepsis Lactate 1.3 0.7 - 2.0 mmol/L Blood 01/12/2025 4:26 PM UTILITY SALES AND SERVICE MANAGER 01/12/2025 4:31 PM UTILITY SALES AND SERVICE MANAGER us Kiera ALMANZAR LAB BLOOD ORDERABLES Final R esult [facility] [address] [facility] Department [place] [address] * (ABNORMAL) eGFR (01/12/2025 4:26 PM UTILITY SALES AND SERVICE MANAGER) eGFR 53(L) >=60 mL/min/1. 73 m2 Comment: Interpretive Data Reference Interval Normal >/= 90 mL/min/1.73m2 Mildly decreased* 60 - 89 mL/min/1.73m2 Mildly to moderately decreased 45 - 59 mL/min/1.73m2 Moderately to severely decreased 30 - 44 mL/min/1.73m2 Severely decreased 15 - 29 mL/min/1.73m2 Kidney Failure < 15 mL/min/1.73m2 *Relative to young adult level Estimated glomerular filtration rate is determined by the 2020 CKD-EPI equation recommended by the National Kidney Foundation (A Unifying Approach to GFR Estimation: Recommendations of the NKF-ASK Task Force on Reassessing the Inclusion of Race in Diagnosing Kidney Disease, JASN 2020). The CKD-EPI equation should not be used for patients with unstable renal function and has not been validated in children and those over 70. Current interpretive data was last reviewed 2021. Blood 01/12/2025 4:26 PM UTILITY SALES AND SERVICE MANAGER 01/12/2025 4:31 PM UTILITY SALES AND SERVICE MANAGER us Kiera ALMANZAR LAB BLOOD ORDERABLES Final R esult [facility] [address] [facility] [place] [address] * Differential, auto (01/12/2025 4:26 PM UTILITY SALES AND SERVICE MANAGER) Pathologist [facility] Neutrophil abs 3.43 1.50 - 6.50 K/cumm Imm gran abs 0.02 0.00 - 0.10 K/cumm [facility] Lymphocyte abs 1.97 0.80 - 3.30 K/cumm [facility] Monocyte abs 0.49 0.20 - 0.80 K/cumm [facility] Eosinophil abs 0.09 0.00 - 0.50 K/cumm [facility] Basophil abs 0.03 0.00 - 0.10 K/cumm [facility] Neutrophil pct 56.9 % [facility] Comment: Interpretive Data Percent cell count reference ranges are not reported, since discordance with absolute values may lead to misinterpretation of CBC data. Current Interpretive Data was last revised on 2017. Imm gran pct 0.3 % [facility] Comment: Interpretive Data Percent cell count reference ranges are not reported, since discordance with absolute values may lead to misinterpretation of CBC data. Current Interpretive Data was last revised on 2017. Lymphocyte pct 32.7 % [facility] Comment: Interpretive Data Percent cell count reference ranges are not reported, since discordance with absolute values may lead to misinterpretation of CBC data. Current Interpretive Data was last revised on 2017. Monocyte pct 8.1 % [facility] Comment: Interpretive Data Percent cell count reference ranges are not reported, since discordance with absolute values may lead to misinterpretation of CBC data. Current Interpretive Data was last revised on 2017. Eosinophil pct 1.5 % [facility] Comment: Interpretive Data Percent cell count reference ranges are not reported, since discordance with absolute values may lead to misinterpretation of CBC data. Current Interpretive Data was last revised on 2017. Basophil pct 0.5 % [facility] Comment: Interpretive Data Percent cell count reference ranges are not reported, since discordance with absolute values may lead to misinterpretation of CBC data. Current Interpretive Data was last revised on 2017. Blood 01/12/2025 4:26 PM UTILITY SALES AND SERVICE MANAGER 01/12/2025 4:31 PM UTILITY SALES AND SERVICE MANAGER us Kiera ALMANZAR LAB BLOOD ORDERABLES Final R esult [place] [id number] [facility] [place] [address] * (ABNORMAL) CBC with auto differential (01/12/2025 4:26 PM UTILITY SALES AND SERVICE MANAGER) WBC 6.03 3.80 - 9.90 K/cumm Hgb 11.5(L) 11.9 - 15.5 g/dL [facility] Hct 36.1 35.6 - 45.5 % [facility] Plt 267 150 - 400 K/cumm [facility] MPV 10.0 9.1 - 12.3 fL [facility] RBC 3.73(L) 3.90 - 5.20 M/cumm [facility] MCV 96.8(H) 81.3 - 96.4 fL [facility] MCH 30.8 27.1 - 33.3 pg [facility] MCHC 31.9(L) 32.3 - 35.7 g/dL [facility] RDW CV 14.3 11.1 - 14.9 % [facility] RDW SD 50.4(H) 35.7 - 48.1 fL [facility] NRBC abs 0.00 0.00 - 0.01 K/cumm [facility] Blood 01/12/2025 4:26 PM UTILITY SALES AND SERVICE MANAGER 01/12/2025 4:31 PM UTILITY SALES AND SERVICE MANAGER Kiera ALMANZAR LAB BLOOD ORDERABLES Final R esult Performing Organization Address [facility] Co de Phone Number [id number] [place] [address] * Erythrocyte sedimentation rate (01/12/2025 4:26 PM UTILITY SALES AND SERVICE MANAGER) [facility] Erythrocyte sedimentation rate 25 1 - 30 mm/hr Blood 01/12/2025 4:26 PM UTILITY SALES AND SERVICE MANAGER 01/12/2025 4:31 PM UTILITY SALES AND SERVICE MANAGER Kiera ALMANZAR LAB BLOOD ORDERABLES Final R esult Performing Organization Address [facility] de Phone Number [address] [place] [address] * CRP (acute phase) (01/12/2025 4:26 PM UTILITY SALES AND SERVICE MANAGER) [facility] CRP 3.8 <=10.0 mg/L Blood 01/12/2025 4:26 PM UTILITY SALES AND SERVICE MANAGER 01/12/2025 4:31 PM UTILITY SALES AND SERVICE MANAGER Kiera ALMANZAR LAB BLOOD ORDERABLES Final R esult Performing Organization Address [facility] Co de Phone Number [address] [place] [address] * Comprehensive metabolic panel (01/12/2025 4:26 PM UTILITY SALES AND SERVICE MANAGER) Pathologist [facility] Sodium 140 135 - 145 mmol/L Potassium, pl 3.7 3.3 - 4.9 mmol/L [facility] Chloride 106 97 - 110 mmol/L [facility] CO2 24 22 - 32 mmol/L [facility] Anion gap 10 2 - 15 mmol/L [facility] BUN 16 6 - 25 mg/dL [facility] Creatinine 1.04 0.60 - 1.10 mg/dL [facility] Glucose 99 70 - 199 mg/dL [facility] Comment: Interpretive Data Fasting glucose >/= 126 mg/dl is diagnostic for diabetes. Fasting is defined as no caloric intake for at least 8 hours. Fasting glucose between 100 mg/dl to 125 mg/dl is diagnostic of prediabetes. In a patient with classic symptoms of hyperglycemia or hyperglycemic crisis, a random glucose >/= 200 mg/dl is diagnostic for diabetes. In the absence of unequivocal hyperglycemia, results should be confirmed by repeat testing. The classification and Diagnosis of Diabetes Diabetes Care 202; 46: S19-S40. Current interpretive data was last revised 2022. Calcium 9.5 8.5 - 10.3 mg/dL [facility] Bilirubin, total 0.5 0.1 - 1.2 mg/dL [facility] Protein, pl 7.1 6.5 - 8.5 g/dL [facility] Albumin 3.7 3.5 - 5.0 g/dL [facility] Alk phos 59 40 - 130 Units/L [facility] ALT 10 7 - 45 Units/L [facility] AST 21 10 - 45 Units/L [facility] Blood 01/12/2025 4:26 PM UTILITY SALES AND SERVICE MANAGER 01/12/2025 4:31 PM UTILITY SALES AND SERVICE MANAGER Kiera ALMANZAR LAB BLOOD ORDERABLES Final R esult [facility] [address] [facility] Department [place] [address] * (ABNORMAL) eGFR (12/30/2024 2:48 AM CDT) eGFR 44(L) >=60 mL/min/1. 73 m2 Comment: Interpretive Data Reference Interval Normal >/= 90 mL/min/1.73m2 Mildly decreased* 60 - 89 mL/min/1.73m2 Mildly to moderately decreased 45 - 59 mL/min/1.73m2 Moderately to severely decreased 30 - 44 mL/min/1.73m2 Severely decreased 15 - 29 mL/min/1.73m2 Kidney Failure < 15 mL/min/1.73m2 *Relative to young adult level Estimated glomerular filtration rate is determined by the 2020 CKD-EPI equation recommended by the National Kidney Foundation (A Unifying Approach to GFR Estimation: Recommendations of the NKF-ASK Task Force on Reassessing the Inclusion of Race in Diagnosing Kidney Disease, JASN 202). The CKD-EPI equation should not be used for patients with unstable renal function and has not been validated in children and those over 70. Current interpretive data was last reviewed 2021. Blood 12/30/2024 2:48 AM CDT 12/30/2024 3:28 AM CDT us Billy Pierce MD LAB BLOOD ORDERABLES Fin al Result [facility] [address] [facility] [place] [address] * Differential, auto (12/30/2024 2:48 AM CDT) Neutrophil abs 4.00 1.50 - 6.50 K/cumm Imm gran abs 0.02 0.00 - 0.10 K/cumm [facility] Lymphocyte abs 1.75 0.80 - 3.30 K/cumm [facility] Monocyte abs 0.55 0.20 - 0.80 K/cumm [facility] Eosinophil abs 0.31 0.00 - 0.50 K/cumm [facility] Basophil abs 0.05 0.00 - 0.10 K/cumm [facility] Neutrophil pct 60.0 % [facility] Comment: Interpretive Data Percent cell count reference ranges are not reported, since discordance with absolute values may lead to misinterpretation of CBC data. Current Interpretive Data was last revised on 2017. Imm gran pct 0.3 % [facility] Comment: Interpretive Data Percent cell count reference ranges are not reported, since discordance with absolute values may lead to misinterpretation of CBC data. Current Interpretive Data was last revised on 2017. Lymphocyte pct 26.2 % [facility] Comment: Interpretive Data Percent cell count reference ranges are not reported, since discordance with absolute values may lead to misinterpretation of CBC data. Current Interpretive Data was last revised on 2017. Monocyte pct 8.2 % [facility] Comment: Interpretive Data Percent cell count reference ranges are not reported, since discordance with absolute values may lead to misinterpretation of CBC data. Current Interpretive Data was last revised on 2017. Eosinophil pct 4.6 % [facility] Comment: Interpretive Data Percent cell count reference ranges are not reported, since discordance with absolute values may lead to misinterpretation of CBC data. Current Interpretive Data was last revised on 2017. Basophil pct 0.7 % [facility] Comment: Interpretive Data Percent cell count reference ranges are not reported, since discordance with absolute values may lead to misinterpretation of CBC data. Current Interpretive Data was last revised on 2017. Blood 12/30/2024 2:48 AM CDT 12/30/2024 3:28 AM CDT us Billy Pierce MD LAB BLOOD ORDERABLES Fin al Result [facility] [address] [facility] [place] [address] * (ABNORMAL) CBC with auto differential (12/30/2024 2:48 AM CDT) WBC 6.68 3.80 - 9.90 K/cumm Hgb 10.0(L) 11.9 - 15.5 g/dL [facility] Hct 31.0(L) 35.6 - 45.5 % [facility] Plt 343 150 - 400 K/cumm [facility] MPV 10.5 9.1 - 12.3 fL [facility] RBC 3.20(L) 3.90 - 5.20 M/cumm [facility] MCV 96.9(H) 81.3 - 96.4 fL [facility] MCH 31.3 27.1 - 33.3 pg [facility] MCHC 32.3 32.3 - 35.7 g/dL [facility] RDW CV 13.5 11.1 - 14.9 % [facility] RDW SD 48.4(H) 35.7 - 48.1 fL [facility] NRBC abs 0.00 0.00 - 0.01 K/cumm [facility] Blood 12/30/2024 2:48 AM CDT 12/30/2024 3:28 AM CDT us Billy Pierce MD LAB BLOOD ORDERABLES Fin al Result [facility] [address] [facility] [place] [address] * (ABNORMAL) Lipid panel (12/30/2024 2:48 AM CDT) Cholesterol 114 30 - 199 mg/dL Comment: Interpretive Data Ages < or = 19 years Acceptable: <170 mg/dL Borderline high: 170-199 mg/dL High: >or= 200 mg/dL Ages > or = 20 years Desirable: <200 mg/dL Borderline high: 200-239 mg/dL High: >or= 240 mg/dL Literature References: 1. Expert Panel on Integrated Guidelines for Cardiovascular Health and Risk Reduction in Children and Adolescents. Pediatrics 2011;128:S213 2. NCEP Expert Panel. Circulation 2004;110:227 Current Interpretive Data was last revised on 2017. Triglycerides 124 <=149 mg/dL [facility] Comment: Interpretive Data Ages < or = 9 years Acceptable: <75 mg/dL Borderline high: 75-99 mg/dL High: >or= 100 mg/dL Ages 10 to 20 years Acceptable: <90 mg/dL Borderline high: 90-129 mg/dL High: >or= 130 mg/dL Ages > or = 20 years Desirable: <150 mg/dL Borderline high: 150-199 mg/dL High: 200-499 mg/dL Very high: >or= 499 mg/dL Literature References: 1. Expert Panel on Integrated Guidelines for Cardiovascular Health and Risk Reduction in Children and Adolescents. Pediatrics 2011;128:S213 2. NCEP Expert Panel. Circulation 2004;110:227 Current Interpretive Data was last revised on 2017. HDL 24(L) >=40 mg/dL [facility] Comment: Interpretive Data Ages < or = 19 years Acceptable: >45 mg/dL Borderline low: 40-45 mg/dL Low: <40 mg/dL Ages > or = 20 years Desirable: >or= 60 mg/dL Low: <40 mg/dL Literature References: 1. Expert Panel on Integrated Guidelines for Cardiovascular Health and Risk Reduction in Children and Adolescents. Pediatrics 2011;128:S213 2. NCEP Expert Panel. Circulation 2004;110:227 Current Interpretive Data was last revised on 2017. LDL, calculated 67 <=129 mg/dL [facility] Comment: Interpretive Data Ages < or = 19 years Acceptable: <110 mg/dL Borderline high: 110-129 mg/dL High: >or= 130 mg/dL Ages > or = 20 years Optimal: <100 mg/dL Near optimal: 100-129 mg/dL Borderline high: 130-159 mg/dL High: >160 mg/dL Calculated using the Roger LDL-C estimating equation. This equation was implemented on 2023. Prior to this date LDL-C was estimated using the Friedewald equation. Literature References: 1. Expert Panel on Integrated Guidelines for Cardiovascular Health and Risk Reduction in Children and Adolescents. Pediatrics 2011;128:S213 2. NCEP Expert Panel. Circulation 2004;110:227 3. Roger Friedman et al. MIGUEL Cardiol. 2020 July 10;5(5):540-548. doi: 10.1001/[email or web address] Current Interpretive Data was last revised on 2023. Non-HDL Cholesterol 90 mg/dL [facility] Comment: Interpretive Data Ages < or = 19 years Acceptable: <120 mg/dL Borderline high: 120-144 mg/dL High: >145 mg/dL Ages > or = 20 years When triglycerides are >200 mg/dL, Non-HDL cholesterol is a secondary target of therapy with treatment goals that are 30 mg/dL greater than the LDL cholesterol target. Literature References: 1. Expert Panel on Integrated Guidelines for Cardiovascular Health and Risk Reduction in Children and Adolescents. Pediatrics 2011;128:S213 2. NCEP Expert Panel. Circulation 2004;110:227 Current Interpretive Data was last revised on 2017. Chol/HDL ratio 5 [facility] Blood 12/30/2024 2:48 AM CDT 12/30/2024 3:28 AM CDT us Jackson Childress MD LAB BLOOD ORDERABLES Final Result [facility] [address] [facility] [place] [address] * (ABNORMAL) Comprehensive metabolic panel (12/30/2024 2:48 AM CDT) Sodium 141 135 - 145 mmol/L Potassium, pl 3.9 3.3 - 4.9 mmol/L [facility] Chloride 105 97 - 110 mmol/L [facility] CO2 25 22 - 32 mmol/L [facility] Anion gap 11 2 - 15 mmol/L [facility] BUN 25 6 - 25 mg/dL [facility] Creatinine 1.20(H) 0.60 - 1.10 mg/dL [facility] Glucose 113 70 - 199 mg/dL [facility] Comment: Interpretive Data Fasting glucose >/= 126 mg/dl is diagnostic for diabetes. Fasting is defined as no caloric intake for at least 8 hours. Fasting glucose between 100 mg/dl to 125 mg/dl is diagnostic of prediabetes. In a patient with classic symptoms of hyperglycemia or hyperglycemic crisis, a random glucose >/= 200 mg/dl is diagnostic for diabetes. In the absence of unequivocal hyperglycemia, results should be confirmed by repeat testing. The classification and Diagnosis of Diabetes Diabetes Care 2021; 46: S19-S40. Current interpretive data was last revised 2022. Calcium 9.3 8.5 - 10.3 mg/dL [facility] Bilirubin, total 0.4 0.1 - 1.2 mg/dL [facility] Protein, pl 6.1(L) 6.5 - 8.5 g/dL [facility] Albumin 3.0(L) 3.5 - 5.0 g/dL [facility] Alk phos 53 40 - 130 Units/L [facility] ALT 29 7 - 45 Units/L [facility] AST 24 10 - 45 Units/L [facility] Blood 12/30/2024 2:48 AM CDT 12/30/2024 3:28 AM CDT us Billy Pierce MD LAB BLOOD ORDERABLES Fin al Result [facility] [address] [facility] [place] [address] * (ABNORMAL) eGFR (12/29/2024 2:22 AM CDT) Pathologist [facility] eGFR 39(L) >=60 mL/min/1. 73 m2 Comment: Interpretive Data Reference Interval Normal >/= 90 mL/min/1.73m2 Mildly decreased* 60 - 89 mL/min/1.73m2 Mildly to moderately decreased 45 - 59 mL/min/1.73m2 Moderately to severely decreased 30 - 44 mL/min/1.73m2 Severely decreased 15 - 29 mL/min/1.73m2 Kidney Failure < 15 mL/min/1.73m2 *Relative to young adult level Estimated glomerular filtration rate is determined by the 2020 CKD-EPI equation recommended by the National Kidney Foundation (A Unifying Approach to GFR Estimation: Recommendations of the NKF-ASK Task Force on Reassessing the Inclusion of Race in Diagnosing Kidney Disease, JASN 2020). The CKD-EPI equation should not be used for patients with unstable renal function and has not been validated in children and those over 70. Current interpretive data was last reviewed 2021. Blood 12/29/2024 2:22 AM CDT 12/29/2024 2:30 AM CDT Billy Pierce MD LAB BLOOD ORDERABLES [facility] al Result [place] [id number] [facility] [place] [address] * Differential, auto (12/29/2024 2:22 AM CDT) Pathologist [facility] Neutrophil abs 4.53 1.50 - 6.50 K/cumm Imm gran abs 0.02 0.00 - 0.10 K/cumm [facility] Lymphocyte abs 1.92 0.80 - 3.30 K/cumm [facility] Monocyte abs 0.64 0.20 - 0.80 K/cumm [facility] Eosinophil abs 0.24 0.00 - 0.50 K/cumm [facility] Basophil abs 0.06 0.00 - 0.10 K/cumm [facility] Neutrophil pct 61.2 % [facility] Comment: Interpretive Data Percent cell count reference ranges are not reported, since discordance with absolute values may lead to misinterpretation of CBC data. Current Interpretive Data was last revised on 2017. Imm gran pct 0.3 % [facility] Comment: Interpretive Data Percent cell count reference ranges are not reported, since discordance with absolute values may lead to misinterpretation of CBC data. Current Interpretive Data was last revised on 2017. Lymphocyte pct 25.9 % [facility] Comment: Interpretive Data Percent cell count reference ranges are not reported, since discordance with absolute values may lead to misinterpretation of CBC data. Current Interpretive Data was last revised on 2017. Monocyte pct 8.6 % [facility] Comment: Interpretive Data Percent cell count reference ranges are not reported, since discordance with absolute values may lead to misinterpretation of CBC data. Current Interpretive Data was last revised on 2017. Eosinophil pct 3.2 % [facility] Comment: Interpretive Data Percent cell count reference ranges are not reported, since discordance with absolute values may lead to misinterpretation of CBC data. Current Interpretive Data was last revised on 2017. Basophil pct 0.8 % [facility] Comment: Interpretive Data Percent cell count reference ranges are not reported, since discordance with absolute values may lead to misinterpretation of CBC data. Current Interpretive Data was last revised on 2017. Blood 12/29/2024 2:22 AM CDT 12/29/2024 2:30 AM CDT Billy Pierce MD LAB BLOOD ORDERABLES Fin al Result [facility] [address] [facility] Department [place] [address] * Heparin anti factor Xa activity (12/29/2024 2:22 AM CDT) [facility] Anti Factor Xa 0.37 IUnits/mL Comment: Interpretive Data Enoxaparin therapeutic range (peak): VTE treatment, Q12hr dosin.60-1.00 IUnits/mL VTE treatment, Q24hr dosin.00-2.00 IUnits/mL Q24hr dosing for renal impairment (CrCl <30 mL/min): 0.60-1.00 IUnits/mL VTE prevention: 0.10-0.40 IUnits/mL - Anti-Xa therapeutic ranges apply to blood samples drawn 4 hours after last dose (peak). - Unfractionated heparin (UFH) therapeutic range: 0.30-0.70 IUnits/mL - Direct factor Xa inhibitors (rivaroxaban, apixaban): Results must be interpreted qualitatively. No activity detected suggests little anticoagulant activity. - In severe antithrombin deficiency, anti-Xa measurement may be inaccurate. - Interpretive guidelines developed in adult populations. Interpretive guidelines for pediatric patients have not been rigorously defined. - Current interpretive data was last revised on 2018. Blood 12/29/2024 2:22 AM CDT 12/29/2024 2:30 AM CDT Billy Pierce MD LAB BLOOD ORDERABLES Fin al Result [place] [id number] [facility] Department [place] [address] * (ABNORMAL) CBC with auto differential (12/29/2024 2:22 AM CDT) WBC 7.41 3.80 - 9.90 K/cumm Hgb 9.9(L) 11.9 - 15.5 g/dL [facility] Hct 30.9(L) 35.6 - 45.5 % [facility] Plt 310 150 - 400 K/cumm [facility] MPV 10.4 9.1 - 12.3 fL [facility] RBC 3.21(L) 3.90 - 5.20 M/cumm [facility] MCV 96.3 81.3 - 96.4 fL [facility] MCH 30.8 27.1 - 33.3 pg [facility] MCHC 32.0(L) 32.3 - 35.7 g/dL [facility] RDW CV 13.6 11.1 - 14.9 % [facility] RDW SD 48.6(H) 35.7 - 48.1 fL [facility] NRBC abs 0.00 0.00 - 0.01 K/cumm [facility] Blood 12/29/2024 2:22 AM CDT 12/29/2024 2:30 AM CDT us Billy Pierce MD LAB BLOOD ORDERABLES Fin al Result [facility] [address] [facility] Department [place] [address] * (ABNORMAL) Lipid panel (12/29/2024 2:22 AM CDT) Cholesterol 101 30 - 199 mg/dL Comment: Interpretive Data Ages < or = 19 years Acceptable: <170 mg/dL Borderline high: 170-199 mg/dL High: >or= 200 mg/dL Ages > or = 20 years Desirable: <200 mg/dL Borderline high: 200-239 mg/dL High: >or= 240 mg/dL Literature References: 1. Expert Panel on Integrated Guidelines for Cardiovascular Health and Risk Reduction in Children and Adolescents. Pediatrics 2011;128:S213 2. NCEP Expert Panel. Circulation 2004;110:227 Current Interpretive Data was last revised on 2017. Triglycerides 112 <=149 mg/dL [facility] Comment: Interpretive Data Ages < or = 9 years Acceptable: <75 mg/dL Borderline high: 75-99 mg/dL High: >or= 100 mg/dL Ages 10 to 20 years Acceptable: <90 mg/dL Borderline high: 90-129 mg/dL High: >or= 130 mg/dL Ages > or = 20 years Desirable: <150 mg/dL Borderline high: 150-199 mg/dL High: 200-499 mg/dL Very high: >or= 499 mg/dL Literature References: 1. Expert Panel on Integrated Guidelines for Cardiovascular Health and Risk Reduction in Children and Adolescents. Pediatrics 2011;128:S213 2. NCEP Expert Panel. Circulation 2004;110:227 Current Interpretive Data was last revised on 2017. HDL 22(L) >=40 mg/dL [facility] Comment: Interpretive Data Ages < or = 19 years Acceptable: >45 mg/dL Borderline low: 40-45 mg/dL Low: <40 mg/dL Ages > or = 20 years Desirable: >or= 60 mg/dL Low: <40 mg/dL Literature References: 1. Expert Panel on Integrated Guidelines for Cardiovascular Health and Risk Reduction in Children and Adolescents. Pediatrics 2011;128:S213 2. NCEP Expert Panel. Circulation 2004;110:227 Current Interpretive Data was last revised on 2017. LDL, calculated 58 <=129 mg/dL [facility] Comment: Interpretive Data Ages < or = 19 years Acceptable: <110 mg/dL Borderline high: 110-129 mg/dL High: >or= 130 mg/dL Ages > or = 20 years Optimal: <100 mg/dL Near optimal: 100-129 mg/dL Borderline high: 130-159 mg/dL High: >160 mg/dL Calculated using the Roger LDL-C estimating equation. This equation was implemented on 2023. Prior to this date LDL-C was estimated using the Friedewald equation. Literature References: 1. Expert Panel on Integrated Guidelines for Cardiovascular Health and Risk Reduction in Children and Adolescents. Pediatrics 2011;128:S213 2. NCEP Expert Panel. Circulation 2004;110:227 3. Roger Friedman et al. MIGUEL Cardiol. 2020 July 10;5(5):540-548. doi: 10.1001/[email or web address].2020.0013 Current Interpretive Data was last revised on 2023. Non-HDL Cholesterol 79 mg/dL [facility] Comment: Interpretive Data Ages < or = 19 years Acceptable: <120 mg/dL Borderline high: 120-144 mg/dL High: >145 mg/dL Ages > or = 20 years When triglycerides are >200 mg/dL, Non-HDL cholesterol is a secondary target of therapy with treatment goals that are 30 mg/dL greater than the LDL cholesterol target. Literature References: 1. Expert Panel on Integrated Guidelines for Cardiovascular Health and Risk Reduction in Children and Adolescents. Pediatrics 2011;128:S213 2. NCEP Expert Panel. Circulation 2004;110:227 Current Interpretive Data was last revised on 2017. Chol/HDL ratio 5 [facility] Blood 12/29/2024 2:22 AM CDT 12/29/2024 2:30 AM CDT us Jackson Childress MD LAB BLOOD ORDERABLES Final Result Performing Organization Address [facility] [place]/ZIP Co de Phone Number [facility] [address] [facility] [place] [address] * (ABNORMAL) Comprehensive metabolic panel (12/29/2024 2:22 AM CDT) Sodium 140 135 - 145 mmol/L Potassium, pl 3.9 3.3 - 4.9 mmol/L [facility] Chloride 107 97 - 110 mmol/L [facility] CO2 26 22 - 32 mmol/L [facility] Anion gap 7 2 - 15 mmol/L [facility] BUN 37(H) 6 - 25 mg/dL [facility] Creatinine 1.34(H) 0.60 - 1.10 mg/dL [facility] Glucose 128 70 - 199 mg/dL [facility] Comment: Interpretive Data Fasting glucose >/= 126 mg/dl is diagnostic for diabetes. Fasting is defined as no caloric intake for at least 8 hours. Fasting glucose between 100 mg/dl to 125 mg/dl is diagnostic of prediabetes. In a patient with classic symptoms of hyperglycemia or hyperglycemic crisis, a random glucose >/= 200 mg/dl is diagnostic for diabetes. In the absence of unequivocal hyperglycemia, results should be confirmed by repeat testing. The classification and Diagnosis of Diabetes Diabetes Care 2021; 46: S19-S40. Current interpretive data was last revised 2022. Calcium 8.7 8.5 - 10.3 mg/dL [facility] Bilirubin, total 0.3 0.1 - 1.2 mg/dL [facility] Protein, pl 5.7(L) 6.5 - 8.5 g/dL [facility] Albumin 2.9(L) 3.5 - 5.0 g/dL [facility] Alk phos 59 40 - 130 Units/L [facility] ALT 34 7 - 45 Units/L [facility] AST 32 10 - 45 Units/L [facility] Blood 12/29/2024 2:22 AM CDT 12/29/2024 2:30 AM CDT Billy Pierce MD LAB BLOOD ORDERABLES Fin al Result Performing Organization Address City/[facility]/ZIP Co de Phone Number [address] [place] [address] * (ABNORMAL) Hemoglobin and hematocrit (12/28/2024 9:23 PM CDT) [facility] Hgb 9.7(L) 11.9 - 15.5 g/dL Hct 30.5(L) 35.6 - 45.5 % [facility] Blood 12/28/2024 9:23 PM CDT 12/28/2024 9:27 PM CDT Billy Pierce MD LAB BLOOD ORDERABLES Fin al Result Performing Organization Address [facility] Co de Phone Number [address] [address] * Heparin anti factor Xa activity (12/28/2024 7:43 PM CDT) [facility] Anti Factor Xa 0.36 IUnits/mL Comment: Interpretive Data Enoxaparin therapeutic range (peak): VTE treatment, Q12hr dosin.60-1.00 IUnits/mL VTE treatment, Q24hr dosin.00-2.00 IUnits/mL Q24hr dosing for renal impairment (CrCl <30 mL/min): 0.60-1.00 IUnits/mL VTE prevention: 0.10-0.40 IUnits/mL - Anti-Xa therapeutic ranges apply to blood samples drawn 4 hours after last dose (peak). - Unfractionated heparin (UFH) therapeutic range: 0.30-0.70 IUnits/mL - Direct factor Xa inhibitors (rivaroxaban, apixaban): Results must be interpreted qualitatively. No activity detected suggests little anticoagulant activity. - In severe antithrombin deficiency, anti-Xa measurement may be inaccurate. - Interpretive guidelines developed in adult populations. Interpretive guidelines for pediatric patients have not been rigorously defined. - Current interpretive data was last revised on 2018. Blood 12/28/2024 7:43 PM CDT 12/28/2024 8:02 PM CDT Billy Pierce MD LAB BLOOD ORDERABLES Fin al Result Performing Organization Address City/[facility]/ZIP Co de Phone Number [facility] [address] [place] [address] * ECG 12 lead (12/28/2024 6:30 PM CDT) Pathologist [facility] Ventricular Rate EKG/Min 72 BPM [facility] Atrial Rate 72 BPM [facility] ME-Interval (MSEC) 168 ms [facility] QRS-Interval (MSEC) 90 ms [facility] QT-Interval (MSEC) 388 ms [facility] QTc 424 ms [facility] P Hallam 30 degrees [facility] R Hallam -39 degrees [facility] T Hallam 35 degrees [facility] Diagnosis Normal sinus rhythm Left axis deviation Abnormal ECG No previous ECGs available Confirmed by HOMERO RAMIREZ M.D. ([id number]) on 12/29/2024 8:01:33 AM [facility] 12/28/2024 6:30 PM CDT 12/29/2024 8:01 AM CDT Billy Pierce MD ECG ORDERABLES Final Re sult Performing Organization Address [facility] de Phone Number [facility] * (ABNORMAL) Hemoglobin and hematocrit (12/28/2024 3:52 PM CDT) Pathologist [facility] Hgb 10.2(L) 11.9 - 15.5 g/dL Hct 31.9(L) 35.6 - 45.5 % [facility] Blood 12/28/2024 3:52 PM CDT 12/28/2024 4:07 PM CDT Billy Pierce MD LAB BLOOD ORDERABLES Fin al Result Performing Organization Address [facility] Co de Phone Number [address] [place] [address] * VENO EXTREM UNILAT S&I, THROMBECTOMY, MECHANICAL, PRIMARY VENOUS, INITIAL VESSEL (12/28/2024 11:20 AM CDT) Anatomical Region Laterality Modality X-Ray Angiograph y Narrative 12/28/2024 11:21 AM CDT Please see OpNote for result. us Jackson Childress MD CV CARDIAC CATH PROCEDURES Final Result * (ABNORMAL) eGFR (12/28/2024 3:21 AM CDT) eGFR 35(L) >=60 mL/min/1. 73 m2 Comment: Interpretive Data Reference Interval Normal >/= 90 mL/min/1.73m2 Mildly decreased* 60 - 89 mL/min/1.73m2 Mildly to moderately decreased 45 - 59 mL/min/1.73m2 Moderately to severely decreased 30 - 44 mL/min/1.73m2 Severely decreased 15 - 29 mL/min/1.73m2 Kidney Failure < 15 mL/min/1.73m2 *Relative to young adult level Estimated glomerular filtration rate is determined by the 2020 CKD-EPI equation recommended by the National Kidney Foundation (A Unifying Approach to GFR Estimation: Recommendations of the NKF-ASK Task Force on Reassessing the Inclusion of Race in Diagnosing Kidney Disease, JASN 2020). The CKD-EPI equation should not be used for patients with unstable renal function and has not been validated in children and those over 70. Current interpretive data was last reviewed 2021. Blood 12/28/2024 3:21 AM CDT 12/28/2024 3:49 AM CDT us Billy Pierce MD LAB BLOOD ORDERABLES Fin al Result [facility] [address] [facility] [place] [address] * Differential, auto (12/28/2024 3:21 AM CDT) Neutrophil abs 4.84 1.50 - 6.50 K/cumm Imm gran abs 0.03 0.00 - 0.10 K/cumm [facility] Lymphocyte abs 1.85 0.80 - 3.30 K/cumm [facility] Monocyte abs 0.74 0.20 - 0.80 K/cumm [facility] Eosinophil abs 0.23 0.00 - 0.50 K/cumm [facility] Basophil abs 0.04 0.00 - 0.10 K/cumm [facility] Neutrophil pct 62.6 % [facility] Comment: Interpretive Data Percent cell count reference ranges are not reported, since discordance with absolute values may lead to misinterpretation of CBC data. Current Interpretive Data was last revised on 2017. Imm gran pct 0.4 % [facility] Comment: Interpretive Data Percent cell count reference ranges are not reported, since discordance with absolute values may lead to misinterpretation of CBC data. Current Interpretive Data was last revised on 2017. Lymphocyte pct 23.9 % [facility] Comment: Interpretive Data Percent cell count reference ranges are not reported, since discordance with absolute values may lead to misinterpretation of CBC data. Current Interpretive Data was last revised on 2017. Monocyte pct 9.6 % [facility] Comment: Interpretive Data Percent cell count reference ranges are not reported, since discordance with absolute values may lead to misinterpretation of CBC data. Current Interpretive Data was last revised on 2017. Eosinophil pct 3.0 % [facility] Comment: Interpretive Data Percent cell count reference ranges are not reported, since discordance with absolute values may lead to misinterpretation of CBC data. Current Interpretive Data was last revised on 2017. Basophil pct 0.5 % [facility] Comment: Interpretive Data Percent cell count reference ranges are not reported, since discordance with absolute values may lead to misinterpretation of CBC data. Current Interpretive Data was last revised on 2017. Blood 12/28/2024 3:21 AM CDT 12/28/2024 3:49 AM CDT Billy Pierce MD LAB BLOOD ORDERABLES Fin al Result [facility] [address] [facility] [place] [address] * Heparin anti factor Xa activity (12/28/2024 3:21 AM CDT) [facility] Anti Factor Xa 0.37 IUnits/mL Comment: Interpretive Data Enoxaparin therapeutic range (peak): VTE treatment, Q12hr dosin.60-1.00 IUnits/mL VTE treatment, Q24hr dosin.00-2.00 IUnits/mL Q24hr dosing for renal impairment (CrCl <30 mL/min): 0.60-1.00 IUnits/mL VTE prevention: 0.10-0.40 IUnits/mL - Anti-Xa therapeutic ranges apply to blood samples drawn 4 hours after last dose (peak). - Unfractionated heparin (UFH) therapeutic range: 0.30-0.70 IUnits/mL - Direct factor Xa inhibitors (rivaroxaban, apixaban): Results must be interpreted qualitatively. No activity detected suggests little anticoagulant activity. - In severe antithrombin deficiency, anti-Xa measurement may be inaccurate. - Interpretive guidelines developed in adult populations. Interpretive guidelines for pediatric patients have not been rigorously defined. - Current interpretive data was last revised on 2018. Blood 12/28/2024 3:21 AM CDT 12/28/2024 3:49 AM CDT Billy Pierce MD LAB BLOOD ORDERABLES Fin al Result [place] [id number] [facility] [place] [address] * (ABNORMAL) CBC with auto differential (12/28/2024 3:21 AM CDT) [facility] WBC 7.73 3.80 - 9.90 K/cumm Hgb 11.3(L) 11.9 - 15.5 g/dL [facility] Hct 34.6(L) 35.6 - 45.5 % [facility] Plt 317 150 - 400 K/cumm [facility] MPV 10.7 9.1 - 12.3 fL [facility] RBC 3.61(L) 3.90 - 5.20 M/cumm [facility] MCV 95.8 81.3 - 96.4 fL [facility] MCH 31.3 27.1 - 33.3 pg [facility] MCHC 32.7 32.3 - 35.7 g/dL [facility] RDW CV 13.6 11.1 - 14.9 % [facility] RDW SD 48.0 35.7 - 48.1 fL [facility] NRBC abs 0.00 0.00 - 0.01 K/cumm [facility] Blood 12/28/2024 3:21 AM CDT 12/28/2024 3:49 AM CDT Billy Pierce MD LAB BLOOD ORDERABLES Fin al Result Performing Organization Address City/[facility]/ZIP Co de Phone Number [address] [employer] [place] [address] * Uric acid (12/28/2024 3:21 AM CDT) Uric acid 4.9 2.5 - 7.0 mg/dL Blood 12/28/2024 3:21 AM CDT 12/28/2024 3:49 AM CDT Billy Pierce MD LAB BLOOD ORDERABLES Fin al Result Performing Organization Address City/[facility] Co de Phone Number [address] [place] [address] * (ABNORMAL) Lipid panel (12/28/2024 3:21 AM CDT) Cholesterol 116 30 - 199 mg/dL Comment: Interpretive Data Ages < or = 19 years Acceptable: <170 mg/dL Borderline high: 170-199 mg/dL High: >or= 200 mg/dL Ages > or = 20 years Desirable: <200 mg/dL Borderline high: 200-239 mg/dL High: >or= 240 mg/dL Literature References: 1. Expert Panel on Integrated Guidelines for Cardiovascular Health and Risk Reduction in Children and Adolescents. Pediatrics 2011;128:S213 2. NCEP Expert Panel. Circulation 2004;110:227 Current Interpretive Data was last revised on 2017. Triglycerides 122 <=149 mg/dL [facility] Comment: Interpretive Data Ages < or = 9 years Acceptable: <75 mg/dL Borderline high: 75-99 mg/dL High: >or= 100 mg/dL Ages 10 to 20 years Acceptable: <90 mg/dL Borderline high: 90-129 mg/dL High: >or= 130 mg/dL Ages > or = 20 years Desirable: <150 mg/dL Borderline high: 150-199 mg/dL High: 200-499 mg/dL Very high: >or= 499 mg/dL Literature References: 1. Expert Panel on Integrated Guidelines for Cardiovascular Health and Risk Reduction in Children and Adolescents. Pediatrics 2011;128:S213 2. NCEP Expert Panel. Circulation 2004;110:227 Current Interpretive Data was last revised on 2017. HDL 23(L) >=40 mg/dL [facility] Comment: Interpretive Data Ages < or = 19 years Acceptable: >45 mg/dL Borderline low: 40-45 mg/dL Low: <40 mg/dL Ages > or = 20 years Desirable: >or= 60 mg/dL Low: <40 mg/dL Literature References: 1. Expert Panel on Integrated Guidelines for Cardiovascular Health and Risk Reduction in Children and Adolescents. Pediatrics 2011;128:S213 2. NCEP Expert Panel. Circulation 2004;110:227 Current Interpretive Data was last revised on 2017. LDL, calculated 71 <=129 mg/dL [facility] Comment: Interpretive Data Ages < or = 19 years Acceptable: <110 mg/dL Borderline high: 110-129 mg/dL High: >or= 130 mg/dL Ages > or = 20 years Optimal: <100 mg/dL Near optimal: 100-129 mg/dL Borderline high: 130-159 mg/dL High: >160 mg/dL Calculated using the Roger LDL-C estimating equation. This equation was implemented on 2023. Prior to this date LDL-C was estimated using the Friedewald equation. Literature References: 1. Expert Panel on Integrated Guidelines for Cardiovascular Health and Risk Reduction in Children and Adolescents. Pediatrics 2011;128:S213 2. NCEP Expert Panel. Circulation 2004;110:227 3. Roger Jackson al. MIGUEL Cardiol. 2020 July 10;5(5):540-548. doi: 10.1001/jamacardio.2020.0013 Current Interpretive Data was last revised on 2023. Non-HDL Cholesterol 93 mg/dL [facility] Comment: Interpretive Data Ages < or = 19 years Acceptable: <120 mg/dL Borderline high: 120-144 mg/dL High: >145 mg/dL Ages > or = 20 years When triglycerides are >200 mg/dL, Non-HDL cholesterol is a secondary target of therapy with treatment goals that are 30 mg/dL greater than the LDL cholesterol target. Literature References: 1. Expert Panel on Integrated Guidelines for Cardiovascular Health and Risk Reduction in Children and Adolescents. Pediatrics 2011;128:S213 2. NCEP Expert Panel. Circulation 2004;110:227 Current Interpretive Data was last revised on 2017. Chol/HDL ratio 5 [facility] Blood 12/28/2024 3:21 AM CDT 12/28/2024 3:49 AM CDT us Jackson Childress MD LAB BLOOD ORDERABLES Final Result [facility] [address] [facility] [place] [address] * (ABNORMAL) Comprehensive metabolic panel (12/28/2024 3:21 AM CDT) Sodium 141 135 - 145 mmol/L Potassium, pl 4.6 3.3 - 4.9 mmol/L [facility] Chloride 104 97 - 110 mmol/L [facility] CO2 28 22 - 32 mmol/L [facility] Anion gap 9 2 - 15 mmol/L [facility] BUN 42(H) 6 - 25 mg/dL [facility] Creatinine 1.46(H) 0.60 - 1.10 mg/dL [facility] Glucose 143 70 - 199 mg/dL [facility] Comment: Interpretive Data Fasting glucose >/= 126 mg/dl is diagnostic for diabetes. Fasting is defined as no caloric intake for at least 8 hours. Fasting glucose between 100 mg/dl to 125 mg/dl is diagnostic of prediabetes. In a patient with classic symptoms of hyperglycemia or hyperglycemic crisis, a random glucose >/= 200 mg/dl is diagnostic for diabetes. In the absence of unequivocal hyperglycemia, results should be confirmed by repeat testing. The classification and Diagnosis of Diabetes Diabetes Care 2021; 46: S19-S40. Current interpretive data was last revised 2022. Calcium 9.2 8.5 - 10.3 mg/dL [facility] Bilirubin, total 0.4 0.1 - 1.2 mg/dL [facility] Protein, pl 6.3(L) 6.5 - 8.5 g/dL [facility] Albumin 3.2(L) 3.5 - 5.0 g/dL [facility] Alk phos 65 40 - 130 Units/L [facility] ALT 42 7 - 45 Units/L [facility] AST 39 10 - 45 Units/L [facility] Blood 12/28/2024 3:21 AM CDT 12/28/2024 3:49 AM CDT Billy Pierce MD LAB BLOOD ORDERABLES Fin al Result [facility] [address] [facility] [place] [address] * Heparin anti factor Xa activity (12/27/2024 6:45 PM CDT) Anti Factor Xa 0.33 IUnits/mL Comment: Interpretive Data Enoxaparin therapeutic range (peak): VTE treatment, Q12hr dosin.60-1.00 IUnits/mL VTE treatment, Q24hr dosin.00-2.00 IUnits/mL Q24hr dosing for renal impairment (CrCl <30 mL/min): 0.60-1.00 IUnits/mL VTE prevention: 0.10-0.40 IUnits/mL - Anti-Xa therapeutic ranges apply to blood samples drawn 4 hours after last dose (peak). - Unfractionated heparin (UFH) therapeutic range: 0.30-0.70 IUnits/mL - Direct factor Xa inhibitors (rivaroxaban, apixaban): Results must be interpreted qualitatively. No activity detected suggests little anticoagulant activity. - In severe antithrombin deficiency, anti-Xa measurement may be inaccurate. - Interpretive guidelines developed in adult populations. Interpretive guidelines for pediatric patients have not been rigorously defined. - Current interpretive data was last revised on 2018. Blood 12/27/2024 6:45 PM CDT 12/27/2024 6:53 PM CDT Billy Pierce MD LAB BLOOD ORDERABLES Fin al Result Performing Organization Address [facility] de Phone Number [facility] [address] [place] [address] * Heparin anti factor Xa activity (12/27/2024 12:35 PM CDT) Anti Factor Xa 0.41 IUnits/mL Comment: Interpretive Data Enoxaparin therapeutic range (peak): VTE treatment, Q12hr dosin.60-1.00 IUnits/mL VTE treatment, Q24hr dosin.00-2.00 IUnits/mL Q24hr dosing for renal impairment (CrCl <30 mL/min): 0.60-1.00 IUnits/mL VTE prevention: 0.10-0.40 IUnits/mL - Anti-Xa therapeutic ranges apply to blood samples drawn 4 hours after last dose (peak). - Unfractionated heparin (UFH) therapeutic range: 0.30-0.70 IUnits/mL - Direct factor Xa inhibitors (rivaroxaban, apixaban): Results must be interpreted qualitatively. No activity detected suggests little anticoagulant activity. - In severe antithrombin deficiency, anti-Xa measurement may be inaccurate. - Interpretive guidelines developed in adult populations. Interpretive guidelines for pediatric patients have not been rigorously defined. - Current interpretive data was last revised on 2018. Blood 12/27/2024 12:3 5 PM CDT 12/27/2024 12:49 PM CDT Billy Pierce MD LAB BLOOD ORDERABLES Fin al Result Performing Organization Address [facility] Co de Phone Number [facility] [address] [place] [address] * TRANSTHORACIC ECHO (TTE) COMPLETE W DOPPLER/CF W CONTRAST W BUBBLE (12/27/2024 12:11 PM CDT) EF Mod BP 61 % CONS SCIMAGE Anatomical Region Laterality Modality Ultrasound 12/27/2024 11:2 7 AM CDT Narrative 12/28/2024 9:33 AM CDT Transthoracic Echocardiographic Report Patient Name: BUTCH OLIVARES G : 1940 (84y 11m) Sex: F Study Date: 12/27/2024 11:27:07 AM Ht(Inch): 65 Wt(Lb): 192.99 BSA: 2 Medical Assistant Prn: Elisa Chen RDCS Location: [id number] Order Provider: MACK HICKMAN Heart Rate: 68 BMI: 32.11 BP: 105 / 62 Ref Provider: MACK HICKMAN PROCEDURES: Echocardiographic Report: ([id number]) Transthoracic complete echo with contrast, 2D, spectral and tissue Doppler, color flow Doppler, M-mode. Additional Procedures: Agitated saline bubble study. Contrast: A contrast injection of Definity was performed to improve assessment of LV function. Definity Lot Number: [id number]. Technically difficult study due to: Technically difficult study due to Body Habitus. Patient imaged supine, unable to position. INDICATIONS: Pulmonary embolism. FINDINGS: Left Ventricle: The Ejection Fraction (Jade's) is measured at 61 %. Right Ventricle: Normal right ventricular size. Left Atrium: The left atrium is normal in size. Right Atrium: The right atrium is normal in size. Mitral Valve: There is trace mitral valve regurgitation. Aortic Valve: The mean transaortic gradient is 6 mmHg. Tricuspid Valve: There is trace tricuspid regurgitation. Pulmonic Valve: The pulmonic valve demonstrates normal leaflet structure. Pericardium: Normal pericardium without evidence of pericardial effusion. Aorta: Normal aortic root. IVC: The estimated RA pressure is 3 mmHg. CONCLUSIONS: 1. The Ejection Fraction (Jade's) is measured at 61 %. 2. Normal right ventricular size. 3. The left atrium is normal in size. 4. The right atrium is normal in size. 5. There is trace mitral valve regurgitation. 6. There is trace tricuspid regurgitation. MEASUREMENTS: 2D/MM Value Range Doppler Value LVIDd 2D 3.38 cm [ 3.50 - 5.70 ] AV Peak Hugh 1.58 m/s LVIDs 2D 2.49 cm [ 3.10 - 4.60 ] AV Peak PG 9.99 mmHg IVSd 2D 0.86 cm [ 0.60 - 1.20 ] AV Mean PG 6.00 mmHg LVPWd 2D 1.13 cm [ 0.60 - 1.10 ] AV VTI 30.90 cm LV Thickness Ratio 0.76 LVOT Peak Hugh 0.79 m/s LV Mass 2D 98.55 g LVOT Peak PG 2.50 mmHg LV Mass Index 2D 49.19 g/m2 LVOT Mean PG 1.00 mmHg RWT 0.67 LVOT VTI 15.50 cm EDV Mod BP 70.60 ml [ 46.00 - 106.00 ] LVOT Diam 2.00 cm LV EDV Index 35.24 ml/m2 SV LVOT 49.00 cm3 ESV Mod BP 27.60 ml [ 14.00 - 42.00 ] RASHAD VTI 1.58 cm2 EF Mod BP 61 % [ 54 - 74 ] RASHAD Vmax 1.57 cm2 LV Basal Diam 3.82 cm LVOT/AV VTI 0.50 - Dimensionless index (DVI) LA Dimension 2D 3.60 cm [ 1.90 - 4.00 ] MV E Peak Hugh 0.71 m/s LA Length 2C 5.20 cm MV A Peak Hugh 0.78 m/s LA Length 4C 5.33 cm MV E/A 0.90 ratio LA Volume BP 44.80 ml MV Decel Time 240.00 msec LA Volume Index 22.36 ml/m2 [ 16.00 - 34.00 ] Med E` Hugh 0.07 m/s RVDd 2D 3.70 cm [ 2.00 - 3.00 ] Lat E` Hugh 0.10 m/s TAPSE 1.70 cm [ 1.71 - 5.00 ] Average E/E` 835.29 IVC Diam 1.41 cm RV S` 11.30 cm/sec AoR Diam 2D 3.70 cm [ 2.00 - 3.70 ] RA Pressure 3.00 mmHg Ao Root Index 1.85 cm/m2 [ 1.00 - 2.00 ] PV Peak Hugh 0.87 m/s Asc Ao Diam 2D 3.80 cm PV Peak PG 3.03 mmHg Asc Ao Index 1.90 cm/m2 - ATTESTATION: I have reviewed and interpreted the pertinent images and measurements of this study. I attest to the conclusions in the final report that is provided above. DISCLAIMER: The study images and the final report will be retained in the patient chart by the Echo Laboratory for the legally required time period. This chart constitutes the legal record of any testing performed. Electronically Signed By: Donnie Meek MD 12/28/2024 9:33:07 AM CDT Procedure Note Donnie Meek MD - 12/28/2024 Transthoracic Echocardiographic Report Patient Name: BUTCH OLIVARES G : 1940 (84y 11m) Sex: F Study Date: 12/27/2024 11:27:07 AM Ht(Inch): 65 Wt(Lb): 192.99 BSA: 2 Medical Assistant Prn: Elisa Chen RDCS Location: [id number] Order Provider:MACK HICKMAN Heart Rate: 68 BMI: 32.11 BP: 105 / 62 Ref Provider: MACK HICKMAN PROCEDURES: Echocardiographic Report: ([id number]) Transthoracic complete echo withcontrast, 2D, spectral and tissue Doppler, color flow Doppler, M-mode. Additional Procedures: Agitated saline bubble study. Contrast: A contrast injection of Definity was performed to improveassessment of LV function. Definity Lot Number: [id number]. Technically difficult study due to: Technically difficult study due toBody Habitus. Patient imaged supine, unable to position. INDICATIONS: Pulmonary embolism. FINDINGS: Left Ventricle: The Ejection Fraction (Jade's) is measured at 61 %. Right Ventricle: Normal right ventricular size. Left Atrium: The left atrium is normal in size. Right Atrium: The right atrium is normal in size. Mitral Valve: There is trace mitral valve regurgitation. Aortic Valve: The mean transaortic gradient is 6 mmHg. Tricuspid Valve: There is trace tricuspid regurgitation. Pulmonic Valve: The pulmonic valve demonstrates normal leafletstructure. Pericardium: Normal pericardium without evidence of pericardialeffusion. Aorta: Normal aortic root. IVC: The estimated RA pressure is 3 mmHg. CONCLUSIONS: 1. The Ejection Fraction (Jade's) is measured at 61 %. 2. Normal right ventricular size. 3. The left atrium is normal in size. 4. The right atrium is normal in size. 5. There is trace mitral valve regurgitation. 6. There is trace tricuspid regurgitation. MEASUREMENTS: 2D/MM Value Range DopplerValue LVIDd 2D 3.38 cm [ 3.50 - 5.70 ] AV Peak Vel1.58 m/s LVIDs 2D 2.49 cm [ 3.10 - 4.60 ] AV Peak PG9.99 mmHg IVSd 2D 0.86 cm [ 0.60 - 1.20 ] AV Mean PG6.00 mmHg LVPWd 2D 1.13 cm [ 0.60 - 1.10 ] AV VTI30.90 cm LV Thickness Ratio 0.76 LVOT Peak Vel0.79 m/s LV Mass 2D 98.55 g LVOT Peak PG2.50 mmHg LV Mass Index 2D 49.19 g/m2 LVOT Mean PG1.00 mmHg RWT 0.67 LVOT VTI15.50 cm EDV Mod BP 70.60 ml [ 46.00 - 106.00 ] LVOT Diam2.00 cm LV EDV Index 35.24 ml/m2 SV LVOT49.00 cm3 ESV Mod BP 27.60 ml [ 14.00 - 42.00 ] RASHAD VTI1.58 cm2 EF Mod BP 61 % [ 54 - 74 ] RASHAD Vmax1.57 cm2 LV Basal Diam 3.82 cm LVOT/AV VTI0.50 - Dimensionless index (DVI) LA Dimension 2D 3.60 cm [ 1.90 - 4.00 ] MV E Peak Vel0.71 m/s LA Length 2C 5.20 cm MV A Peak Vel0.78 m/s LA Length 4C 5.33 cm MV E/A0.90 ratio LA Volume BP 44.80 ml MV Decel Gepu373.00 msec LA Volume Index 22.36 ml/m2 [ 16.00 - 34.00 ] Med E` Vel0.07 m/s RVDd 2D 3.70 cm [ 2.00 - 3.00 ] Lat E` Vel0.10 m/s TAPSE 1.70 cm [ 1.71 - 5.00 ] Average E/E`835.29 IVC Diam 1.41 cm RV S`11.30 cm/sec AoR Diam 2D 3.70 cm [ 2.00 - 3.70 ] RA Pressure3.00 mmHg Ao Root Index 1.85 cm/m2 [ 1.00 - 2.00 ] PV Peak Vel0.87 m/s Asc Ao Diam 2D 3.80 cm PV Peak PG3.03 mmHg Asc Ao Index1.90 cm/m2 - ATTESTATION: I have reviewed and interpreted the pertinent images and measurements ofthis study. I attest to the conclusions in the final report that is provided above. DISCLAIMER: The study images and the final report will be retained in the patientchart by the Echo Laboratory for the legally required time period. This chart constitutesthe legal record of any testing performed. Electronically Signed By: Donnie Meek MD 12/28/2024 9:33:07 AM CDT us Mack Hickman MD CV ECHO PROCEDURES Fin al Result * (ABNORMAL) eGFR (12/27/2024 5:47 AM CDT) eGFR 43(L) >=60 mL/min/1. 73 m2 Comment: Interpretive Data Reference Interval Normal >/= 90 mL/min/1.73m2 Mildly decreased* 60 - 89 mL/min/1.73m2 Mildly to moderately decreased 45 - 59 mL/min/1.73m2 Moderately to severely decreased 30 - 44 mL/min/1.73m2 Severely decreased 15 - 29 mL/min/1.73m2 Kidney Failure < 15 mL/min/1.73m2 *Relative to young adult level Estimated glomerular filtration rate is determined by the 2020 CKD-EPI equation recommended by the National Kidney Foundation (A Unifying Approach to GFR Estimation: Recommendations of the NKF-ASK Task Force on Reassessing the Inclusion of Race in Diagnosing Kidney Disease, JASN 2020). The CKD-EPI equation should not be used for patients with unstable renal function and has not been validated in children and those over 70. Current interpretive data was last reviewed 2021. Blood 12/27/2024 5:47 AM CDT 12/27/2024 5:56 AM CDT us Mack Hickman MD LAB BLOOD ORDERABLES F inal Result [facility] [address] [facility] [place] [address] * Differential, auto (12/27/2024 5:47 AM CDT) Neutrophil abs 5.21 1.50 - 6.50 K/cumm Imm gran abs 0.02 0.00 - 0.10 K/cumm [facility] Lymphocyte abs 1.77 0.80 - 3.30 K/cumm [facility] Monocyte abs 0.77 0.20 - 0.80 K/cumm [facility] Eosinophil abs 0.22 0.00 - 0.50 K/cumm [facility] Basophil abs 0.06 0.00 - 0.10 K/cumm [facility] Neutrophil pct 64.8 % [facility] Comment: Interpretive Data Percent cell count reference ranges are not reported, since discordance with absolute values may lead to misinterpretation of CBC data. Current Interpretive Data was last revised on 2017. Imm gran pct 0.2 % [facility] Comment: Interpretive Data Percent cell count reference ranges are not reported, since discordance with absolute values may lead to misinterpretation of CBC data. Current Interpretive Data was last revised on 2017. Lymphocyte pct 22.0 % [facility] Comment: Interpretive Data Percent cell count reference ranges are not reported, since discordance with absolute values may lead to misinterpretation of CBC data. Current Interpretive Data was last revised on 2017. Monocyte pct 9.6 % [facility] Comment: Interpretive Data Percent cell count reference ranges are not reported, since discordance with absolute values may lead to misinterpretation of CBC data. Current Interpretive Data was last revised on 2017. Eosinophil pct 2.7 % [facility] Comment: Interpretive Data Percent cell count reference ranges are not reported, since discordance with absolute values may lead to misinterpretation of CBC data. Current Interpretive Data was last revised on 2017. Basophil pct 0.7 % [facility] Comment: Interpretive Data Percent cell count reference ranges are not reported, since discordance with absolute values may lead to misinterpretation of CBC data. Current Interpretive Data was last revised on 2017. Blood 12/27/2024 5:47 AM CDT 12/27/2024 5:56 AM CDT us Mack Hickman MD LAB BLOOD ORDERABLES F inal Result [facility] [address] [facility] [place] [address] * (ABNORMAL) Thyroid Function [place] (12/27/2024 5:47 AM CDT) TSH 5.33(H) 0.30 - 4.20 mcIUnit/mL Blood 12/27/2024 5:47 AM CDT 12/27/2024 5:56 AM CDT Mack Hickman MD LAB BLOOD ORDERABLES F inal Result Performing Organization Address [facility] de Phone Number [facility] [address] [place] [address] * Heparin anti factor Xa activity (12/27/2024 5:47 AM CDT) [facility] Anti Factor Xa 0.12 IUnits/mL Comment: Interpretive Data Enoxaparin therapeutic range (peak): VTE treatment, Q12hr dosin.60-1.00 IUnits/mL VTE treatment, Q24hr dosin.00-2.00 IUnits/mL Q24hr dosing for renal impairment (CrCl <30 mL/min): 0.60-1.00 IUnits/mL VTE prevention: 0.10-0.40 IUnits/mL - Anti-Xa therapeutic ranges apply to blood samples drawn 4 hours after last dose (peak). - Unfractionated heparin (UFH) therapeutic range: 0.30-0.70 IUnits/mL - Direct factor Xa inhibitors (rivaroxaban, apixaban): Results must be interpreted qualitatively. No activity detected suggests little anticoagulant activity. - In severe antithrombin deficiency, anti-Xa measurement may be inaccurate. - Interpretive guidelines developed in adult populations. Interpretive guidelines for pediatric patients have not been rigorously defined. - Current interpretive data was last revised on 2018. Blood 12/27/2024 5:47 AM CDT 12/27/2024 5:56 AM CDT Mack Hickman MD LAB BLOOD ORDERABLES F inal Result Performing Organization Address [facility] Co de Phone Number [address] [place] [address] * (ABNORMAL) CBC with auto differential (12/27/2024 5:47 AM CDT) [facility] WBC 8.05 3.80 - 9.90 K/cumm Hgb 11.7(L) 11.9 - 15.5 g/dL [facility] Hct 36.1 35.6 - 45.5 % [facility] Plt 307 150 - 400 K/cumm [facility] MPV 10.7 9.1 - 12.3 fL [facility] RBC 3.81(L) 3.90 - 5.20 M/cumm [facility] MCV 94.8 81.3 - 96.4 fL [facility] MCH 30.7 27.1 - 33.3 pg [facility] MCHC 32.4 32.3 - 35.7 g/dL [facility] RDW CV 13.7 11.1 - 14.9 % [facility] RDW SD 47.7 35.7 - 48.1 fL [facility] NRBC abs 0.00 0.00 - 0.01 K/cumm [facility] Blood 12/27/2024 5:47 AM CDT 12/27/2024 5:56 AM CDT Mack Hickman MD LAB BLOOD ORDERABLES F inal Result Performing Organization Address City/[facility] Co de Phone Number [address] [place] [address] * T4, free (12/27/2024 5:47 AM CDT) [facility] Free T4 1.36 0.90 - 1.70 ng/dL Blood 12/27/2024 5:47 AM CDT 12/27/2024 5:56 AM CDT Narrative [facility] - 12/27/2024 7:46 AM CDT This test was reflexed from a TSH result. Mack Hickman MD LAB BLOOD ORDERABLES F inal Result Performing Organization Address City/[facility]/ZIP Co de Phone Number [address] [place] [address] * Phosphorus (12/27/2024 5:47 AM CDT) Pathologist [facility] Phosphorus, pl 4.0 2.3 - 4.5 mg/dL Blood 12/27/2024 5:47 AM CDT 12/27/2024 5:56 AM CDT Result [facility] Mack Hickman MD LAB BLOOD ORDERABLES F inal Result Performing Organization Address [facility] de Phone Number [address] [place] [address] * Magnesium (12/27/2024 5:47 AM CDT) [facility] Magnesium 1.8 1.4 - 2.5 mg/dL Blood 12/27/2024 5:47 AM CDT 12/27/2024 5:56 AM CDT Result [facility] [facility] Mack Hickman MD LAB BLOOD ORDERABLES F inal Result Performing Organization Address [facility] de Phone Number [address] [place] [address] * (ABNORMAL) Hemoglobin A1c (12/27/2024 5:47 AM CDT) [facility] Hgb A1C 6.3(H) 4.0 - 5.6 % Estimated Average Glucose 134 mg/dL SABA Comment: The ADA recommends reporting an estimated Average Glucose (eAG) with all Hemoglobin A1c results using the equation derived from a study of 507 normal and diabetic adults. Minority populations were underrepresented and children were not included. (Diabetes Care 31:7980-9674, 2008). The eAG is not equivalent to a fasting glucose. Blood 12/27/2024 5:47 AM CDT 12/27/2024 5:56 AM CDT Result [facility] Mack Hickman MD LAB BLOOD ORDERABLES F inal Result Performing Organization Address [facility] de Phone Number [address] [place] [address] * (ABNORMAL) Lipid panel (12/27/2024 5:47 AM CDT) Cholesterol 120 30 - 199 mg/dL Comment: Interpretive Data Ages < or = 19 years Acceptable: <170 mg/dL Borderline high: 170-199 mg/dL High: >or= 200 mg/dL Ages > or = 20 years Desirable: <200 mg/dL Borderline high: 200-239 mg/dL High: >or= 240 mg/dL Literature References: 1. Expert Panel on Integrated Guidelines for Cardiovascular Health and Risk Reduction in Children and Adolescents. Pediatrics 2011;128:S213 2. NCEP Expert Panel. Circulation 2004;110:227 Current Interpretive Data was last revised on 2017. Triglycerides 115 <=149 mg/dL SABA Comment: Interpretive Data Ages < or = 9 years Acceptable: <75 mg/dL Borderline high: 75-99 mg/dL High: >or= 100 mg/dL Ages 10 to 20 years Acceptable: <90 mg/dL Borderline high: 90-129 mg/dL High: >or= 130 mg/dL Ages > or = 20 years Desirable: <150 mg/dL Borderline high: 150-199 mg/dL High: 200-499 mg/dL Very high: >or= 499 mg/dL Literature References: 1. Expert Panel on Integrated Guidelines for Cardiovascular Health and Risk Reduction in Children and Adolescents. Pediatrics 2011;128:S213 2. NCEP Expert Panel. Circulation 2004;110:227 Current Interpretive Data was last revised on 2017. HDL 24(L) >=40 mg/dL SABA Comment: Interpretive Data Ages < or = 19 years Acceptable: >45 mg/dL Borderline low: 40-45 mg/dL Low: <40 mg/dL Ages > or = 20 years Desirable: >or= 60 mg/dL Low: <40 mg/dL Literature References: 1. Expert Panel on Integrated Guidelines for Cardiovascular Health and Risk Reduction in Children and Adolescents. Pediatrics 2011;128:S213 2. NCEP Expert Panel. Circulation 2004;110:227 Current Interpretive Data was last revised on 2017. LDL, calculated 75 <=129 mg/dL SABA Comment: Interpretive Data Ages < or = 19 years Acceptable: <110 mg/dL Borderline high: 110-129 mg/dL High: >or= 130 mg/dL Ages > or = 20 years Optimal: <100 mg/dL Near optimal: 100-129 mg/dL Borderline high: 130-159 mg/dL High: >160 mg/dL Calculated using the Roger LDL-C estimating equation. This equation was implemented on 2023. Prior to this date LDL-C was estimated using the Friedewald equation. Literature References: 1. Expert Panel on Integrated Guidelines for Cardiovascular Health and Risk Reduction in Children and Adolescents. Pediatrics 2011;128:S213 2. NCEP Expert Panel. Circulation 2004;110:227 3. Roger Friedman et al. MIGUEL Cardiol. 2020 July 10;5(5):540-548. doi: 10.1001/jamacardio.2020.0013 Current Interpretive Data was last revised on 2023. Non-HDL Cholesterol 96 mg/dL [facility] [place] Comment: Interpretive Data Ages < or = 19 years Acceptable: <120 mg/dL Borderline high: 120-144 mg/dL High: >145 mg/dL Ages > or = 20 years When triglycerides are >200 mg/dL, Non-HDL cholesterol is a secondary target of therapy with treatment goals that are 30 mg/dL greater than the LDL cholesterol target. Literature References: 1. Expert Panel on Integrated Guidelines for Cardiovascular Health and Risk Reduction in Children and Adolescents. Pediatrics 2011;128:S213 2. NCEP Expert Panel. Circulation 2004;110:227 Current Interpretive Data was last revised on 2017. Chol/HDL ratio 5 [facility] Blood 12/27/2024 5:47 AM CDT 12/27/2024 5:56 AM CDT us Jackson Childress MD LAB BLOOD ORDERABLES Final Result [facility] [place] [address] [facility] [place] [address] * (ABNORMAL) Comprehensive metabolic panel (12/27/2024 5:47 AM CDT) Sodium 139 135 - 145 mmol/L Potassium, pl 3.6 3.3 - 4.9 mmol/L [facility] Chloride 103 97 - 110 mmol/L [facility] CO2 24 22 - 32 mmol/L [facility] Anion gap 12 2 - 15 mmol/L [facility] BUN 39(H) 6 - 25 mg/dL [facility] Creatinine 1.24(H) 0.60 - 1.10 mg/dL [facility] Glucose 139 70 - 199 mg/dL [facility] Comment: Interpretive Data Fasting glucose >/= 126 mg/dl is diagnostic for diabetes. Fasting is defined as no caloric intake for at least 8 hours. Fasting glucose between 100 mg/dl to 125 mg/dl is diagnostic of prediabetes. In a patient with classic symptoms of hyperglycemia or hyperglycemic crisis, a random glucose >/= 200 mg/dl is diagnostic for diabetes. In the absence of unequivocal hyperglycemia, results should be confirmed by repeat testing. The classification and Diagnosis of Diabetes Diabetes Care 2021; 46: S19-S40. Current interpretive data was last revised 2022. Calcium 9.0 8.5 - 10.3 mg/dL [facility] Bilirubin, total 0.6 0.1 - 1.2 mg/dL [facility] Protein, pl 6.4(L) 6.5 - 8.5 g/dL [facility] Albumin 3.1(L) 3.5 - 5.0 g/dL [facility] Alk phos 53 40 - 130 Units/L [facility] ALT 39 7 - 45 Units/L [facility] AST 35 10 - 45 Units/L [facility] Blood 12/27/2024 5:47 AM CDT 12/27/2024 5:56 AM CDT us Mack Hickman MD LAB BLOOD ORDERABLES F inal Result [facility] [address] [facility] [place] [address] * (ABNORMAL) eGFR (12/26/2024 11:41 PM CDT) eGFR 44(L) >=60 mL/min/1. 73 m2 Comment: Interpretive Data Reference Interval Normal >/= 90 mL/min/1.73m2 Mildly decreased* 60 - 89 mL/min/1.73m2 Mildly to moderately decreased 45 - 59 mL/min/1.73m2 Moderately to severely decreased 30 - 44 mL/min/1.73m2 Severely decreased 15 - 29 mL/min/1.73m2 Kidney Failure < 15 mL/min/1.73m2 *Relative to young adult level Estimated glomerular filtration rate is determined by the 2020 CKD-EPI equation recommended by the National Kidney Foundation (A Unifying Approach to GFR Estimation: Recommendations of the NKF-ASK Task Force on Reassessing the Inclusion of Race in Diagnosing Kidney Disease, JASN 2020). The CKD-EPI equation should not be used for patients with unstable renal function and has not been validated in children and those over 70. Current interpretive data was last reviewed 2021. Blood 12/26/2024 11:4 1 PM CDT 12/26/2024 11:45 PM CDT Mack Hickman MD LAB BLOOD ORDERABLES F inal Result [place] [address] [facility] [place] [address] * (ABNORMAL) Differential, auto (12/26/2024 11:41 PM CDT) Neutrophil abs 6.98(H) 1.50 - 6.50 K/cumm Imm gran abs 0.03 0.00 - 0.10 K/cumm [facility] Lymphocyte abs 1.52 0.80 - 3.30 K/cumm [facility] Monocyte abs 0.80 0.20 - 0.80 K/cumm [facility] Eosinophil abs 0.14 0.00 - 0.50 K/cumm [facility] Basophil abs 0.04 0.00 - 0.10 K/cumm [facility] Neutrophil pct 73.4 % [facility] Comment: Interpretive Data Percent cell count reference ranges are not reported, since discordance with absolute values may lead to misinterpretation of CBC data. Current Interpretive Data was last revised on 2017. Imm gran pct 0.3 % [facility] Comment: Interpretive Data Percent cell count reference ranges are not reported, since discordance with absolute values may lead to misinterpretation of CBC data. Current Interpretive Data was last revised on 2017. Lymphocyte pct 16.0 % [facility] Comment: Interpretive Data Percent cell count reference ranges are not reported, since discordance with absolute values may lead to misinterpretation of CBC data. Current Interpretive Data was last revised on 2017. Monocyte pct 8.4 % [facility] Comment: Interpretive Data Percent cell count reference ranges are not reported, since discordance with absolute values may lead to misinterpretation of CBC data. Current Interpretive Data was last revised on 2017. Eosinophil pct 1.5 % [facility] Comment: Interpretive Data Percent cell count reference ranges are not reported, since discordance with absolute values may lead to misinterpretation of CBC data. Current Interpretive Data was last revised on 2017. Basophil pct 0.4 % [facility] Comment: Interpretive Data Percent cell count reference ranges are not reported, since discordance with absolute values may lead to misinterpretation of CBC data. Current Interpretive Data was last revised on 2017. Blood 12/26/2024 11:4 1 PM CDT 12/26/2024 11:45 PM CDT us Mack Hickman MD LAB BLOOD ORDERABLES F inal Result [facility] [address] [facility] Department [place] [address] * Heparin anti factor Xa activity (12/26/2024 11:41 PM CDT) Pathologist [facility] Anti Factor Xa <0.10 IUnits/mL Comment: Interpretive Data Enoxaparin therapeutic range (peak): VTE treatment, Q12hr dosin.60-1.00 IUnits/mL VTE treatment, Q24hr dosin.00-2.00 IUnits/mL Q24hr dosing for renal impairment (CrCl <30 mL/min): 0.60-1.00 IUnits/mL VTE prevention: 0.10-0.40 IUnits/mL - Anti-Xa therapeutic ranges apply to blood samples drawn 4 hours after last dose (peak). - Unfractionated heparin (UFH) therapeutic range: 0.30-0.70 IUnits/mL - Direct factor Xa inhibitors (rivaroxaban, apixaban): Results must be interpreted qualitatively. No activity detected suggests little anticoagulant activity. - In severe antithrombin deficiency, anti-Xa measurement may be inaccurate. - Interpretive guidelines developed in adult populations. Interpretive guidelines for pediatric patients have not been rigorously defined. - Current interpretive data was last revised on 2018. Blood 12/26/2024 11:4 1 PM CDT 12/26/2024 11:45 PM CDT Narrative [facility] - 12/27/2024 12:44 AM CDT Baseline prior to heparin initiation Mack Hickman MD LAB BLOOD ORDERABLES F inal Result [facility] [address] [facility] Department of Laboratories [place], [place] [id number] * CBC with auto differential (12/26/2024 11:41 PM CDT) [facility] WBC 9.51 3.80 - 9.90 K/cumm Hgb 12.8 11.9 - 15.5 g/dL [facility] Hct 39.3 35.6 - 45.5 % [facility] Plt 336 150 - 400 K/cumm [facility] MPV 10.2 9.1 - 12.3 fL [facility] RBC 4.15 3.90 - 5.20 M/cumm [facility] MCV 94.7 81.3 - 96.4 fL [facility] MCH 30.8 27.1 - 33.3 pg [facility] MCHC 32.6 32.3 - 35.7 g/dL [facility] RDW CV 13.7 11.1 - 14.9 % [facility] RDW SD 47.3 35.7 - 48.1 fL [facility] NRBC abs 0.00 0.00 - 0.01 K/cumm [facility] Blood 12/26/2024 11:4 1 PM CDT 12/26/2024 11:45 PM CDT Mack Hickman MD LAB BLOOD ORDERABLES F inal Result Performing Organization Address [facility] de Phone Number [facility] [address] [place] [address] * (ABNORMAL) Protime-INR (12/26/2024 11:41 PM CDT) [facility] PT 15.50(H) 12.00 - 14.60 sec INR 1.22(H) 0.90 - 1.20 [facility] Comment: Interpretive data Oral anticoagulant therapeutic ranges: Venous thromboembolism prophylaxis or treatment: 2.0-3.0 CARDIOLOGY Standard range: 2.0-3.0 High-intensity range: 2.5-3.5 Refer to indication-specific guidelines for appropriate target ranges for prosthetic heart valve replacement. Current interpretive data was last revised on 2019. Blood 12/26/2024 11:4 1 PM CDT 12/26/2024 11:45 PM CDT Mack Hickman MD LAB BLOOD ORDERABLES F inal Result Performing Organization Address [facility] de Phone Number [id number] [place] [address] * (ABNORMAL) Comprehensive metabolic panel (12/26/2024 11:41 PM CDT) [facility] Sodium 141 135 - 145 mmol/L Potassium, pl 3.7 3.3 - 4.9 mmol/L [facility] Chloride 103 97 - 110 mmol/L [facility] CO2 26 22 - 32 mmol/L [facility] Anion gap 12 2 - 15 mmol/L [facility] BUN 39(H) 6 - 25 mg/dL [facility] Creatinine 1.21(H) 0.60 - 1.10 mg/dL [facility] Glucose 135 70 - 199 mg/dL [facility] Comment: Interpretive Data Fasting glucose >/= 126 mg/dl is diagnostic for diabetes. Fasting is defined as no caloric intake for at least 8 hours. Fasting glucose between 100 mg/dl to 125 mg/dl is diagnostic of prediabetes. In a patient with classic symptoms of hyperglycemia or hyperglycemic crisis, a random glucose >/= 200 mg/dl is diagnostic for diabetes. In the absence of unequivocal hyperglycemia, results should be confirmed by repeat testing. The classification and Diagnosis of Diabetes Diabetes Care 2021; 46: S19-S40. Current interpretive data was last revised 2022. Calcium 9.7 8.5 - 10.3 mg/dL [facility] Bilirubin, total 0.5 0.1 - 1.2 mg/dL [facility] Protein, pl 7.4 6.5 - 8.5 g/dL [facility] Albumin 3.5 3.5 - 5.0 g/dL [facility] Alk phos 62 40 - 130 Units/L [facility] ALT 44 7 - 45 Units/L [facility] AST 36 10 - 45 Units/L [facility] Blood 12/26/2024 11:4 1 PM CDT 12/26/2024 11:45 PM CDT Mack Hickman MD LAB BLOOD ORDERABLES F inal Result Performing Organization Address City/[facility]/ZIP Co de Phone Number [facility] [address] [facility] [place] [address] * CT Body Outside Reference (12/26/2024 2:15 PM CDT) Narrative [email or web address] - 01/02/2025 11:39 AM CDT This order has been auto-finalized and does not contain a result. us Provider Transcribed Order IMG CT PROCEDURES Fin al Result Performing Organization Address City/[facility]/ZIP Co de Phone Number [email or web address] * XR Outside Reference (12/26/2024 1:40 PM CDT) Narrative [email or web address] - 01/02/2025 11:39 AM CDT This order has been auto-finalized and does not contain a result. us Provider Transcribed Order IMG XR PROCEDURES Fin al Result Performing Organization Address City/[facility] Co de Phone Number [email or web address] * US Outside Reference (12/26/2024 12:55 PM CDT) Narrative [email or web address]_[email or web address] - 01/02/2025 11:39 AM CDT This order has been auto-finalized and does not contain a result. us Provider Transcribed Order IMG US PROCEDURES Fin al Result Performing Organization Address City/[facility] Co de Phone Number [email or web address] from Last 3 Months Insurance [address] [facility] [place] [address] HEALTHCARE Advance Directives For more information, please contact: [phone] * LIMITED - No CPR (Latest Code Status on File) Date Activated Date Inactivated Comments 12/26/2024 11:42 PM 12/30/2024 6:22 PM Question Answer Comments Provide aggressive medical m anagement before a full cardiopulmonary arrest occurs. Use antibiotics, IV Fluids, and medical treatment unless specifically selected below: No intubation * Full Code Date Activated Date Inactivated Comments 12/26/2024 9:55 PM 12/26/2024 11:42 PM Care Teams Citizenship Instructor Relationship Specialty Start Date End Date Brant Willis MD [address] [place] [address] PCP - General Emergency Medicine 12/30/24
== END 2025-02-25 15:23 | disposition home or self-care (01) ==
PROVIDERS: PCP Emergency Medicine; Visit Provider Emergency Medicine
DX: S52.92XA Unspecified fracture of left forearm, initial encounter for closed fracture (principal); X58.XXXA Exposure to other specified factors, initial encounter
CPT/HCPCS: 73100; 73120